=== PATIENT | male | born 1955 | race Caucasian/White ===

== ENCOUNTER 2017-08-27 19:33 | Inpatient (IN) | payer MEDICARE ==
[2017-08-27] MEDS ORDERED: CLINDAMYCIN IV 900MG 900 MG in PREMIX BAG 1 BAG IVPB ONE (20:05)
[2017-08-27] MEDS ORDERED: SODIUM CHLORIDE 0.9% 1000ML 1,000 ML IVS ONE (20:05)
[2017-08-27] MEDS ORDERED: CLINDAMYCIN IV 900MG 50 ML IVPB ONE (20:21)
--- NOTE | 2017-08-27 20:38 | ED.PDOC ---
History of Present Illness - General Chief Complaint: General Stated Complaint: incision site with redness Time Seen by Provider: 08/27/17 20:02 Source: patient Exam Limitations: no limitations - History of Present Illness Initial Comments: HAS WOUND TO LEFT GROIN, INCREASED REDNESS TODAY Timing/Duration: getting worse Improving Factors: nothing Worsening Factors: nothing Associated Symptoms: other - HAS HAD SWELLING OF THE LEFT LOWER EXT SINCE LYMPH NODE REMOVAL Allergies/Adverse Reactions: Allergies NO KNOWN ALLERGY Allergy (Verified 08/27/17 20:01) Home Medications: Ambulatory Orders Acetaminophen/Codeine #3 300-30 mg 08/27/17 Cephalexin 500 mg PO Q6HR 08/27/17 Clindamycin HCl 300 mg PO Q6HR 08/27/17 Oxycodone HCl [Oxycontin] 08/27/17 Review of Systems - Review of Systems Constitutional: States: fever, weakness. Denies: chills EENTM: States: no symptoms reported Respiratory: Denies: cough, short of breath, wheezing Cardiology: States: edema. Denies: chest pain, palpitations, syncope Gastrointestinal/Abdominal: Denies: abdominal pain, constipation, diarrhea, nausea, vomiting Genitourinary: Denies: dysuria, frequency Musculoskeletal: States: other - SWELLING OF THE LEFT LOWER EXT. Denies: back pain, joint pain, joint swelling Skin: States: other - POST LYMPH NODE DISSECTION WITH LARGE OPEN WOUND. HAS BEEN PACKING THE WOUND. REDNESS TO LOWER WOUND EDGES. Neurological: States: paresthesia, weakness Endocrine: Denies: increased hunger, increased thirst, increased urine Hematologic/Lymphatic: States: no symptoms reported All other Systems: Reviewed and Negative Past Medical History (General) - Patient Medical History Hx Seizures: No Hx Stroke: No Hx Dementia: No Hx Asthma: No Hx of COPD: No Hx Cardiac Disorders: No Hx Congestive Heart Failure: No Hx Hypertension: No Hx Diabetes: No Hx Cancer: Yes - melanoma jun 2017 Surgical History: other - Vaccination History Hx Tetanus, Diphtheria Vaccination: No Hx Influenza Vaccination: Yes Immunizations Up to Date: Yes - Social History Hx Tobacco Use: No Hx Alcohol Use: Yes Family Medical History - Family History Mother Family History: No Known Physical Exam - Physical Exam General Appearance: Alert, Well Developed, Well Groomed, Well Hydrated Ears, Nose, Throat: hearing grossly normal, normal ENT inspection Neck: non-tender, full range of motion, supple Respiratory: chest non-tender, lungs clear, normal breath sounds, no respiratory distress, no accessory muscle use Cardiovascular/Chest: normal peripheral pulses, regular rate, rhythm, no edema, no gallop Peripheral Pulses: radial,right: 2+, radial,left: 2+, dorsalis pedis,right: 2+, dorsalis pedis,left: 1+ Gastrointestinal/Abdominal: normal bowel sounds, non tender, soft, no organomegaly, no pulsatile mass Extremity: normal range of motion 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 Progress - Progress Progress: 08/27/17 20:44 A CHART REVIEW HAS BEEN PERFORMED. PT HAD A LYMPH NODE DISSECTION DONE X2 WITH RESECTION AFTER MELANOMA RESECTION. HAS OPEN WOUND TO THE LEFT GROIN. HAS BEEN DOING WOUND PACKING WITH HOME HEALTH. AWAITING WOUND VAC. HOME HEALTH NOTED INCREASED ERYTHEMA TODAY. IS ALREADY ON CLINDA/KEFLEX. WILL EVAL FOR BACTEREMIA. APPEARS TO HAVE FAILED OUTPATIENT ANTIBIOTICS. Departure - Departure Clinical Impression: Failure of outpatient treatment Wound cellulitis after surgery Qualifiers: Encounter type: initial encounter Qualified Code(s): T81.4XXA - Infection following a procedure, initial encounter Time of Disposition: 20:57 Disposition: Admit Patient Condition: Fair Departure Forms: ED Discharge - Pt. Copy, Patient Portal Self Enrollment Diet: resume usual diet Activity: ambulate only with walker Home Medications: Ambulatory Orders Acetaminophen/Codeine #3 300-30 mg 08/27/17 Cephalexin 500 mg PO Q6HR 08/27/17 Clindamycin HCl 300 mg PO Q6HR 08/27/17 Oxycodone HCl [Oxycontin] 08/27/17 Decision To Admit - Decistion To Admit Decision to Admit Reason: Admit from ER - FAILED OUTPATIENT ANTIBIOTICS Decision to Admit Date: 08/27/17 Decision to Admit Time: 20:56
[2017-08-27] MEDS ORDERED: SODIUM CHLORIDE 0.9% 500ML 500 ML ONE ×2 (20:40→20:41)
[2017-08-27] MEDS ORDERED: VANCOMYCIN HCL INJ 1,000 MG VIAL IVPB ONE (20:40)
[2017-08-27] MEDS: VANCOMYCIN HCL INJ 1,700 MG in SODIUM CHLORIDE 0.9% 500ML 500 ML IVPB SCH (20:43)
--- NOTE | 2017-08-27 22:27 | HP ---
SUPERVISING PHYSICIAN: Edgar Hensley MD CHIEF COMPLAINT: Left groin wound redness with pain and physical weakness. HISTORY OF PRESENT ILLNESS: This is a 62-year-old male patient who lives at [facility]. Approximately 8 years ago, he had a melanoma to the left posterior calf that was excised. He had had no problems with it until June and he had another melanoma excised from the same spot on his posterior left calf. The surgery was in [place]. At the same time, he had lymph node resection of the left groin. He then had a second surgery on 08/05/17 where he had some extra lymph nodes excised. He sees a surgeon in [place]. Approximately 1-1/2 weeks after his second surgery, he was visiting his daughter in [place] and he went to the Emergency Room due to the wound in his groin opening up. At that time, they packed it and sent him back to see his surgeon. He was put on clindamycin as well as Keflex. He saw his surgeon shortly thereafter. He continued the Keflex and clindamycin. He ordered wound care by [facility]. They had been packing it daily and he was to have a wound VAC placed on it at some point in time. The wound VAC has not come in, so that has not happened. Since Friday, the area of the groin has had more soreness as well as redness that has gone down the inside of his left thigh. On Friday, he ran a low-grade fever with extreme weakness and fatigue. Friday he felt somewhat better, but on Friday and Friday, he progressively worsened to the point that the leg was too painful as well as the redness was increasing, so he came to the Emergency Room. In the Emergency Room, his white count was 6.7 with hemoglobin 11.6, hematocrit 33.9, platelet count 240, 36% neutrophils. Sodium 140, potassium 3.9, chloride 107, CO2 25, BUN 22, creatinine 1.02, blood sugar 106. Liver enzymes were within normal limits. His lactic acid was 1.4. Blood cultures were drawn as well as a wound culture taken. He was given vancomycin in the Emergency Room as well as IV clindamycin. I was called for hospital admission. PAST MEDICAL HISTORY: 1. Chronic low back pain secondary to a compression fracture. He sees pain management in [place]. PAST SURGICAL HISTORY: 1. Appendectomy. 2. Melanoma excision 8 years ago. 3. Melanoma excision with lymph node resection in June of 2017. 4. Second surgery for lymph node excision on 08/05/17. OUTPATIENT MEDICATIONS: Per the EMR and awaiting verification. ALLERGIES: NO KNOWN DRUG ALLERGIES. SOCIAL HISTORY: He lives at [facility]. His primary care physician is in [place]. He denies any smoking, ETOH or illicit drug use. REVIEW OF SYSTEMS: GENERAL: Positive for fever and fatigue. Negative for weight changes. HEENT: Negative for sinus symptoms, ear pain, vision changes or sore throat. RESPIRATORY: Negative for wheezing, coughing or shortness of breath. CARDIAC: Negative for chest pain, palpitations or tachycardia. GASTROINTESTINAL: Negative for nausea, vomiting, diarrhea, constipation or abdominal pain. GENITOURINARY: Negative for hematuria, dysuria or polyuria. SKIN: As per history of present illness. NEUROLOGIC: Positive for weakness. Negative for dizziness or seizures. PHYSICAL EXAMINATION: VITAL SIGNS: Temperature 97.9. Heart rate 84. Blood pressure 139/89. Respiratory rate 22. O2 saturation 97% on room air. GENERAL: This is a 62-year-old male patient who is lying in his hospital bed. He is in no acute distress. HEENT: Normocephalic, atraumatic. Pupils are equal and reactive. Oropharynx is clear. NECK: Supple without mass. RESPIRATORY: Essentially clear to auscultation bilaterally. CHEST: There is equal rise and fall of the chest with inspiration and expiration. CARDIOVASCULAR: Regular rate and rhythm. GASTROINTESTINAL: Abdomen is soft, rounded, nondistended. Bowel sounds are positive. EXTREMITIES: Right lower extremity with no cyanosis, clubbing or edema. Left lower extremity is +1 to +2 edema along the entire leg. This swelling has been present since around the time of his surgery in June. INTEGUMENT: He has a large open wound to the left groin with packing in it. The redness is surrounding the wound edges and it is warm, it is erythematous and the erythema extends down to mid medial thigh and approximately 3 cm around the wound edges. NEUROLOGIC: Awake, alert and oriented times three. LABORATORY: Labs and films are as per history of present illness. ASSESSMENT: 1. Cellulitis of the left groin, failed outpatient therapy. 2. Melanoma excision of the left posterior calf plus lymph node excision at the same time of the initial surgery. 3. Multiple lymph node resections on 08/05/17. 4. Chronic lower back pain on OxyContin and managed by a pain management group in [place]. PLAN: We will admit the patient to the hospital. We will start him on vancomycin per pharmacy protocol. I will consult Dr. Fields in the morning. I will start him on a proton pump inhibitor for ulcer prophylaxis as well as Lovenox for DVT prophylaxis. His home medications will be restarted. I will order labs for in the morning. I have also ordered a CRP and ESR. We will continue to monitor the patient closely and follow as needed. Dr. Hensley is the collaborating physician and available for consultation. #[id number] [facility]
[2017-08-27] MEDS ORDERED: SODIUM CHLORIDE 0.9% (FLUSH) 10 ML SYG IV PRN (23:20)
[2017-08-27] MEDS ORDERED: SODIUM CHLORIDE 0.45% 1000ML 1,000 ML IV ONE (23:23)
[2017-08-27] MEDS ORDERED: ENOXAPARIN SODIUM 40 MG/0.4 ML SYG SUBCU SCH (23:30)
[2017-08-27] MEDS ORDERED: PANTOPRAZOLE SODIUM IV 40 MG VIAL IV SCH (23:30)
[2017-08-27] MEDS: HYDROcodone 10MG/APAP 325MG 1 EA TAB PO PRN (23:51)
[2017-08-27] MEDS: IV SET AND CAP CHANGE INJ INJ SCH (23:51)
[2017-08-27] MEDS: TEMAZEPAM 15 MG CAP PO PRN (23:52)
[2017-08-28] MEDS: HYDROcodone 10MG/APAP 325MG 1 EA TAB PO PRN ×3 (05:56→18:25)
[2017-08-28] MEDS ORDERED: SODIUM CHLORIDE 0.9% 500ML 500 ML ONE (07:34)
[2017-08-28] MEDS ORDERED: VANCOMYCIN HCL INJ 1,000 MG VIAL IVPB ONE ×2 (07:35→19:52)
[2017-08-28] MEDS ORDERED: VANCOMYCIN PER PHARMACY INJ SCH (08:00)
[2017-08-28] MEDS: VANCOMYCIN HCL INJ 1,700 MG in SODIUM CHLORIDE 0.9% 500ML 500 ML IVPB SCH (08:17)
[2017-08-28] MEDS: SODIUM CHLORIDE 0.9% (FLUSH) 10 ML SYG IV SCH ×2 (10:52→20:44)
[2017-08-28] MEDS ORDERED: levoFLOXacin 500MG IV 500 MG in PREMIX BAG 1 BAG IVPB SCH (11:00)
[2017-08-28] MEDS ORDERED: levoFLOXacin 500MG IV 100 ML IVPB ONE (11:08)
--- NOTE | 2017-08-28 13:32 | CONS ---
DATE OF CONSULTATION: 08/28/17 HISTORY OF PRESENT ILLNESS: The patient is a 62-year-old male who has undergone surgical treatment for a melanoma of his left calf after what appeared to be a sentinel node biopsy in the left groin which was positive. He underwent a femoral node dissection which apparently also had positive nodes. The groin incision eventually dehisced and he has been on oral antibiotics and wound packings awaiting a wound VAC, but presented yesterday because of pain in the leg and more soreness and a low grade temperature along with a feeling of weakness and fatigue. PAST MEDICAL HISTORY: 1. Chronic low back pain from a compression fracture. PAST SURGICAL HISTORY: 1. Appendectomy. 2. Melanoma originally excised in [place] 8 years ago. It was re-excised with the sentinel node biopsy in June in [place] by Dr. Perdomo, and then he underwent the femoral node dissection on 08/01/17. CURRENT MEDICATIONS: He takes no medications other than the antibiotics and pain medication. ALLERGIES: NO KNOWN DRUG ALLERGIES. 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 He denies smoking. He uses alcohol rarely. FAMILY HISTORY: Noncontributory. REVIEW OF SYSTEMS: There has been no chest pain or shortness of breath. Other than the swelling in his left leg and discomfort associated with that, he denies health issues. PHYSICAL EXAMINATION: VITAL SIGNS: The patient is currently afebrile, normotensive. HEENT: Sclerae nonicteric. Mucous membranes moist. NECK: Without adenopathy. BACK: Without CVA tenderness. CHEST: Equal breath sound. HEART: Regular rate and rhythm. ABDOMEN: Soft and benign. EXTREMITIES: The left lower extremity is edematous in comparison with the right leg. In the left groin, there is a wound with good granulation tissue and no obvious necrotic tissue although the superior flap is hard to examine without a light. There is mild surrounding erythema. There was no smell to the drainage from the wound. The wide re-excision site in the left groin is clean and healing well. There are still metallic sutures left intact. There is also what appears to be a biopsy site behind the left knee which is clean and healing well. LABORATORY: White count 4.6, hemoglobin 10.6, platelet count 195,000, segmented neutrophils 33%. ESR 103. Chemistries had normal liver functions on admission. C-reactive protein is 3.2, potassium 3.9, creatinine 0.85, glucose 105. ASSESSMENT: 1. Melanoma status post positive femoral node dissection with wound dehiscence and minimal surrounding cellulitis. RECOMMENDATION: Continue local wound care and proceed with the wound VAC. Would await culture results before making any changes on antibiotics. Also, we explained to the patient he would need oncology consultation when his wound has resolved. #[id number] [facility]
[2017-08-28] MEDS: PANTOPRAZOLE SODIUM TAB 40 MG PO SCH (16:41)
--- NOTE | 2017-08-28 18:01 | PN ---
DATE: 08/28/17 SUPERVISING PHYSICIAN: Edgar Hensley M.D. SUBJECTIVE: The patient is resting in bed. He has had no fevers. He has had some pain but more so in his back than in the wound. The wound dressing remains in place showing some serous type drainage. The patient notes that the area is not quite as sore as it was yesterday and the area that was marked with the erythema seems to be receding. OBJECTIVE: VITAL SIGNS: Temperature 97.8, pulse 74, blood pressure 123/81, respirations 20, satting 95% on room air. I's and O's show a positive balance of 690 with 2140 in, 1450 out. Weight is 134.9 kg. CHEST: Lungs were clear to auscultation bilaterally. HEART: Regular rate and rhythm. ABDOMEN: Obese but soft, non-tender. There are 2 puncture wounds that are healing to the left lower quadrant from previous drains with no obvious signs of infection. EXTREMITIES: In the left groin the wound shows to be draining but serous lymph type fluid. It is mildly erythematous around the wound edges. There is an area of erythema that does extend past the borders but is receding compared to previous markings on admission. No obvious areas of consolidation or tunneling. Overall the wound shows good granulation with no necrotic tissue readily visible. Left calf shows an incision that is clean and dry with suture in place. Shows to be healing well. Overall his left leg is edematous compared to the right. Pulses distally were strong. Capillary refill was brisk. NEUROLOGIC: He is alert and oriented times three. LABORATORY: White count 4,600 with hemoglobin 10.6, hematocrit 31.1, platelet count 195,000. Differential shows to be without a left shift. Chemistries show normal electrolytes. BUN 19, creatinine 0.85. MICROBIOLOGY: Blood cultures remain negative. Wound culture is pending. ASSESSMENT: 1. Melanoma status post femoral node dissection with wound dehiscence and minimal surrounding cellulitis to the left groin. 2. Chronic lower back pain on OxyContin under a pain management group in [place]. 3. History of multiple lymph node resections in 08/05/17. PLAN: Dr. Fields has seen the patient in consultation. Wound management will be per Dr. Fields's management awaiting a Wound VAC placement with [facility] which is scheduled to be in place tomorrow. Will await culture results to further target any antibiotic therapy. Also, continue to encourage the patient to keep his leg elevated to decrease lymphedema. Anticipate discharge at Dr. Fields's discretion. Until then, will continue to monitor and treat appropriately. Once the patient is discharged, he will need to be reinforced that he needs to followup with Oncology in consultation after the wound is completely healed as well as followup with his primary care provider, Dr. Ramirez in [place]. #[id number] [facility]
[2017-08-28] MEDS ORDERED: SODIUM CHLORIDE 0.9% 250ML 250 ML ONE (19:51)
[2017-08-28] MEDS: SODIUM CHLORIDE 0.9% IVPB SCH (20:42)
[2017-08-28] MEDS: VANCOMYCIN HCL IVPB SCH (20:42)
[2017-08-28] MEDS: ENOXAPARIN SODIUM 40 MG/0.4 ML SYG SUBCU SCH (20:44)
--- NOTE | 2017-08-28 20:58 | PCM.CORE ---
Physician DVT/VTE - Nurse DVT Assessment & Total Each Risk Factor Represents 2 Points: Age 60-74, Malignancy (present/past) Each Risk Factor is 1 Point: Varicose Veins/Edema Legs, Obesity (BMI >25) DVT Assessment Score: 6 - 5 or more Very High Risk Treatments: Early Ambulation *, Sequential Compression Device Pharmacological: Enoxaparin 40mg SQ Daily
[2017-08-29] MEDS: HYDROcodone 10MG/APAP 325MG 1 EA TAB PO PRN ×4 (00:05→23:36)
[2017-08-29] MEDS: TEMAZEPAM 15 MG CAP PO PRN ×2 (00:06→23:36)
[2017-08-29] MEDS: PANTOPRAZOLE SODIUM TAB 40 MG PO SCH (06:03)
[2017-08-29] MEDS ORDERED: levoFLOXacin 750MG IV 750 MG in PREMIX BAG 1 BAG IVPB SCH (09:30)
[2017-08-29] MEDS ORDERED: VANCOMYCIN HCL INJ 1,000 MG VIAL IVPB ONE ×2 (09:34→19:19)
[2017-08-29] MEDS ORDERED: SODIUM CHLORIDE 0.9% 250ML 250 ML ONE ×2 (09:34→19:18)
[2017-08-29] MEDS: SODIUM CHLORIDE 0.9% (FLUSH) 10 ML SYG IV SCH ×2 (09:45→20:56)
[2017-08-29] MEDS: VANCOMYCIN HCL IVPB SCH ×2 (09:45→20:56)
[2017-08-29] MEDS: SODIUM CHLORIDE 0.9% IVPB SCH ×2 (09:45→20:56)
[2017-08-29] MEDS: levoFLOXacin 750MG IV 750 MG in PREMIX BAG 1 BAG IVPB SCH (12:40)
[2017-08-29] MEDS: ENOXAPARIN SODIUM 40 MG/0.4 ML SYG SUBCU SCH (20:57)
[2017-08-30] MEDS ORDERED: VANCOMYCIN HCL INJ 1,000 MG VIAL IVPB ONE ×2 (05:34→20:28)
[2017-08-30] MEDS ORDERED: SODIUM CHLORIDE 0.9% 250ML 250 ML ONE ×2 (05:34→20:27)
[2017-08-30] MEDS: PANTOPRAZOLE SODIUM TAB 40 MG PO SCH (06:23)
[2017-08-30] MEDS: SODIUM CHLORIDE 0.9% IVPB SCH ×2 (09:43→21:00)
[2017-08-30] MEDS: VANCOMYCIN HCL IVPB SCH ×2 (09:43→21:00)
[2017-08-30] MEDS: SODIUM CHLORIDE 0.9% (FLUSH) 10 ML SYG IV SCH ×2 (09:45→20:59)
--- NOTE | 2017-08-30 11:05 | PN ---
DATE: 08/29/17 SUPERVISING PHYSICIAN: Edgar Hensley M.D. SUBJECTIVE: The patient is resting in bed. His leg overnight had decreased in edema with it being elevated. He has been afebrile. He has had no chest pain, shortness of breath, nausea, vomiting, diarrhea. He continues with wound management with [id number] dressings and tolerated this well. We are still awaiting final determination of when his wound vac will be available for discharge.. OBJECTIVE: VITAL SIGNS: Temperature 97.5, pulse 68, blood pressure 159/98, respirations 17 , saturation 97% on room air. I's and O's show a balance of 0 with 2850 in, 2850 out. Weight is 138.4 kg. CHEST: Lungs were clear to auscultation bilaterally. HEART: Tones distant. ABDOMEN: Obese but soft, non-tender. Positive bowel sounds. EXTREMITIES: Left groin the wound continues to show a serous lymphatic type drainage with dressing in place and decrease in erythema overall. Measurements on his legs have indicated that he has actually decreased in the extremity edema to the left leg, pulses remained strong distally with capillary refill brisk. NEUROLOGIC: He is alert and oriented times three. LABORATORY: Chemistries today show normal electrolytes with potassium 4.0. Creatinine 0.91, repeat C-reactive protein down to 2.1. Vancomycin trough today 11.6. MICROBIOLOGY: Preliminary wound culture shows a gram negative uri with preliminary indicating possible Pseudomonas needing further workup. Blood cultures remain negative at 48 hours. RADIOLOGY: No additional radiographic studies. ASSESSMENT: 1. Melanoma status post femoral node dissection with wound dehiscence and minimal surrounding cellulitis to the left groin with preliminary wound cultures indicating a gram negative uri, possibly Pseudomonas requiring initiation of additional antibiotics to include Levaquin for Pseudomonas coverage with continuation of vancomycin for gram positive awaiting final culture results. 2. Chronic lower back pain on OxyContin under a pain management group in [place]. 3. History of multiple lymph node resections in 08/05/17 as noted above for melanoma. PLAN: Will continue with wound management if available given that he has a gram negative uri will switch to 0.25% acetic acid for [id number] dressing at least twice a day. If acetic acid is unavailable will continue with normal saline or sterile water as previous. Will await further culture results in the morning before starting antibiotic therapy. Will continue to follow with home health, [facility] in efforts to secure discharge planning and placement of wound Vac prior to discharge or after discharge. Will continue to defer further management of the wound care to Dr. Fields and ultimately discharge decision. Once the patient is discharged, again he will need close followup with oncology and consultation and further wound management and is followed by his primary care physician. Until then, we will continue to monitor and treat appropriately. #[id number] [facility]
[2017-08-30] MEDS: levoFLOXacin 750MG IV 750 MG in PREMIX BAG 1 BAG IVPB SCH (12:06)
[2017-08-30] MEDS: HYDROcodone 10MG/APAP 325MG 1 EA TAB PO PRN ×2 (13:32→18:45)
--- NOTE | 2017-08-30 19:29 | PN ---
DATE: 08/30/17 SUPERVISING PHYSICIAN: Edgar Hensley M.D. SUBJECTIVE: The patient has been afebrile. He has had no nausea or vomiting or diarrhea. He is keeping his leg elevated and is showing good response with his leg showing decrease in the amount of edema. Wound continues to show good response to treatment. OBJECTIVE: VITAL SIGNS: Temperature 97.5, pulse 60, blood pressure 130/81, respirations 18, satting 98% on room air. I's and O's show a negative balance of 1010 with 1790 in, 2800 out. Weight is 136.7 kg. CHEST: Lungs were clear to auscultation bilaterally. HEART: Regular rate and rhythm. ABDOMEN: Obese but soft, non-tender. Positive bowel sounds. EXTREMITIES: Left leg is slightly larger compared to the right, but from admission has shown to have decreased in measurement. There is no edema noted to the right leg. The wound in the groin continues to show serous lymphatic drainage with good granulation. No obvious necrotic tissue and no drainage indicating a significant infection. Wound to the left calf continues to show just some mild erythema with sutures in place, healing well with no signs of infection. NEUROLOGIC: He is alert and oriented times three. LABORATORY: No additional laboratory was completed today. ASSESSMENT: 1. Melanoma status post femoral node dissection with wound dehiscence with minimal surrounding cellulitis to the left groin with preliminary wound cultures indicating a gram negative uri with cultures pending with concern for possible Pseudomonas with continuation of antibiotics to include Levaquin for Pseudomonas coverage as well as vancomycin for gram positive awaiting final culture results. 2. Chronic lower back pain on OxyContin under a pain management group in [place]. 3. History of multiple lymph node resections in 08/05/17 as noted above for melanoma to the back of the left calf. PLAN: Will continue to do [id number] dressings and await final culture results. Anticipate discharging tomorrow. Arrangements are ready for the wound care and Wound VAC with [facility] once discharged the following day. Will await further culture results and target antibiotics as appropriate. Until then, continue to monitor and treat appropriately. #[id number] [facility]
[2017-08-30] MEDS: ENOXAPARIN SODIUM 40 MG/0.4 ML SYG SUBCU SCH (20:59)
[2017-08-31] MEDS: IV SET AND CAP CHANGE INJ INJ SCH
[2017-08-31] MEDS: HYDROcodone 10MG/APAP 325MG 1 EA TAB PO PRN ×2 (00:28→09:34)
[2017-08-31] MEDS: TEMAZEPAM 15 MG CAP PO PRN (00:28)
[2017-08-31] MEDS: PANTOPRAZOLE SODIUM TAB 40 MG PO SCH (06:42)
[2017-08-31] MEDS ORDERED: SODIUM CHLORIDE 0.9% 250ML 250 ML ONE (08:55)
[2017-08-31] MEDS ORDERED: VANCOMYCIN HCL INJ 1,000 MG VIAL IVPB ONE (08:56)
[2017-08-31] MEDS: SODIUM CHLORIDE 0.9% IVPB SCH (09:10)
[2017-08-31] MEDS: VANCOMYCIN HCL IVPB SCH (09:10)
[2017-08-31] MEDS: SODIUM CHLORIDE 0.9% (FLUSH) 10 ML SYG IV SCH (09:10)
[2017-08-31 10:47] VITALS: BP 129/74; TEMP 98.6; O2SAT 96
[2017-08-31] MEDS: levoFLOXacin 750MG IV 750 MG in PREMIX BAG 1 BAG IVPB SCH (13:14)
--- NOTE | 2017-09-07 21:42 | DS ---
SUPERVISING PHYSICIAN: Edgar Hensley M.D. DISCHARGE DIAGNOSIS: 1. Melanoma status post femoral node dissection with wound dehiscence with minimal surrounding cellulitis to the left groin with wound cultures showing Pseudomonas aeruginosa that was sensitive to Levaquin with the patient having been treated with parenteral antibiotics to include Levaquin as well as vancomycin showing good improvement in wound healing. 2. Chronic lower back pain on OxyContin under a pain management group in [place]. 3. History of multiple lymph node dissections in 08/05/17 as noted above for melanoma to the back of the left calf. REASON FOR HOSPITALIZATION: Mr. Spencer is a 62-year-old male patient that lives at [facility]. Approximately 8 years previously, he had a melanoma to the left posterior calf that was excised. He had no problems up until June and he had another recurrence of melanoma which was then excised from the same spot on his posterior left calf. The surgery occurred in [place]. At the same time, he had lymph node resection to the left groin. He then had a second surgery on 08/05/17 where he had some extra lymph nodes excised. He is followed by a surgeon in [place]. Approximately 1-1/2 weeks after his second surgery, he was visiting his daughter in [place] and he went to the Emergency Room due to the wound in his groin opening up. At that time, the wound was packed and he was sent back home to see his surgeon. He was put on clindamycin as well as Keflex. He did see his surgeon shortly thereafter and was continued on Keflex and clindamycin. He was ordered to have wound care by [facility] for placement of a packing and wound VAC at some point. The wound VAC had not come in prior to Friday and the area in the groin had become more sore as well as red that had been going down the inside of his left thigh. On Friday, he ran a low-grade fever with extreme weakness and fatigue. Friday, he felt somewhat better, but on Friday and Friday, he progressively worsened to the point that the leg was too painful as well as the redness was increasing , so at that time he presented to the Emergency Room. In the Emergency Room, he was found to have a normal white count at 6,700. Blood cultures were drawn as well as a wound culture taken. Wound management was done in the E. R. and he was started on vancomycin per Pharmacy protocol as well as given a dose of clindamycin. He was admitted to the hospital in stable condition for further management of the wound. LABORATORY STUDIES: Initial white count was 6,700, at discharge was 4,600. Hemoglobin and hematocrit were stable and at discharge was 10.6 and 31.1. Platelet count was 195,000. Differential was without a left shift. He had a sed rate that was elevated at 103. Chemistries both on admission and at discharge showed normal electrolytes with BUN 14, creatinine 0.91 at discharge. Calcium 8.1. Initial lactic acid was 1.4. C reactive protein that was slightly elevated initially at 3.2, but by discharge after treatment was down to 2.1. Urinalysis showed to be within normal limits. Toxicology screen: He had 1 vancomycin trough that was 11.6. MICROBIOLOGY: Wound culture final results showed Pseudomonas aeruginosa that was sensitive to Levaquin and Cipro, but resistant to Penicillins, Tetracycline , Macrobid and sulfa drugs. Please see that final sensitivity report for full details. Blood cultures were drawn and they remained negative at 5 days. RADIOLOGY: No radiographic studies were submitted. CONSULTATION: General surgery by Dr. Fields for help with wound management. See his note for full details. HOSPITAL COURSE: Mr. Spencer was admitted from the . as noted above in his History of Present Illness on 08/27/17. Wound culture was taken. Wound management was provided. Consultation with Dr. Feilds who provided help with managing his wound care. He was started on Levaquin after initial wound culture showed gram-negative rods with final culture results completed. He was continued on Levaquin and vancomycin was stopped. The patient showed good improvement in his wound with no signs of infection and was felt clinically well enough on date of discharge to continue with outpatient treatment measures with home health. PLAN: Mr. Spencer was discharged on 08/31/17 with instructions to followup with his primary care provider, Dr. Ramirez, in 1 to 2 weeks. He was also told to followup with his surgeon in [place]. He was provided instructions on wound management. He is not to have any baths but could shower. He was continued on antibiotics to include Levaquin and had arrangements with [facility] to followup after discharge for further wound management and wound VAC placement. He was told to return to the hospital should any concerning symptoms or worsening of his wound. New medications at discharge included: 1. Align 4 mg daily for 30 days. 2. Levaquin 50 mg daily for 10 days. No other medications were added to his medication regimen. Diet at discharge was regular diet as tolerated. Activity is increase as tolerated. Condition on discharge was stable and improved. #[id number] [facility]
== END 2017-08-31 11:30 | disposition home health service (06) | DRG 863 ==
LOC: ER 19:33 → OBSVTOIN 22:26 → MS 22:26
PROVIDERS: ADMIT Nurse Practitioner Acute Care; ATTEND Nurse Practitioner Family
DX: T81.4XXA Infection following a procedure, initial encounter (principal); L03.314 Cellulitis of groin; T81.31XA Disruption of external operation (surgical) wound, not elsewhere classified, initial encounter; C77.4 Secondary and unspecified malignant neoplasm of inguinal and lower limb lymph nodes; G89.29 Other chronic pain; M54.5 Low back pain; E66.9 Obesity, unspecified; Y83.8 Other surgical procedures as the cause of abnormal reaction of the patient, or of later complication, without mention of misadventure at the time of the procedure; Z98.890 Other specified postprocedural states; Z85.820 Personal history of malignant melanoma of skin; Y92.9 Unspecified place or not applicable; Z79.899 Other long term (current) drug therapy; Z79.891 Long term (current) use of opiate analgesic; Z68.37 Body mass index [BMI] 37.0-37.9, adult

== ENCOUNTER 2019-02-19 16:58 | Observation (INO) | payer MEDICARE ==
[2019-02-19] MEDS ORDERED: SODIUM CHLORIDE 0.9% (FLUSH) 10 ML SYG IV PRN ×2 (17:33→20:59)
[2019-02-19] MEDS ORDERED: SODIUM CHLORIDE 0.9% 1000ML 1,000 ML IVS ONE ×2 (17:33→18:46)
[2019-02-19] MEDS ORDERED: ONDANSETRON INJ 4 MG/2 ML VIAL IV ONE (17:33)
--- NOTE | 2019-02-19 17:42 | ED.PDOC ---
History of Present Illness - General Chief Complaint: General Stated Complaint: weakness,does not feel well Time Seen by Provider: 02/19/19 17:33 Source: patient Exam Limitations: no limitations - History of Present Illness Initial Comments: PT PRESENTS TO THE ED WITH 1 WEEK HISTORY OF NAUSEA AND VOMITING. PT STATES HE HAS BEEN UNABLE TO KEEP DOWN FOOD OR FLUID FOR THE PAST WEEK. HE ALSO REPORTS HEADACHE AND INCREASED DYSPNEA WITH EXERTION. HE DENIES FEVER, CHILLS. PT HAS HISTORY OF METASTATIC MELANOMA OF THE LLE. PT REPORTS SPREAD OF CANCER TO LYMPH NODES AND THE ESOPHAGUS. PT STATES HE IS CURRENTLY RECEIVING ONLY LOCAL CHEMOTHERAPY INJECTED DIRECTLY TO THE SITE OF INITIAL LESION. Timing/Duration: 1 week, constant Severity: moderate Improving Factors: nothing Worsening Factors: nothing Associated Symptoms: headaches, malaise, nausea/vomiting, shortness of breath, weakness Allergies/Adverse Reactions: Allergies NO KNOWN ALLERGY Allergy (Verified 08/27/17 20:01) Home Medications: Ambulatory Orders HYDROcodone 10MG/APAP 325MG [[place] 10/325] 1 ea PO PRN 02/19/19 Review of Systems - Review of Systems Constitutional: States: malaise, weakness. Denies: chills, fever EENTM: Denies: nose pain, throat pain Respiratory: States: short of breath. Denies: cough Cardiology: Denies: chest pain, palpitations Gastrointestinal/Abdominal: States: nausea, vomiting. Denies: abdominal pain, diarrhea Genitourinary: Denies: dysuria, frequency Musculoskeletal: Denies: joint pain, joint swelling Skin: Denies: change in color, dryness Neurological: States: headache. Denies: numbness, paresthesia Endocrine: States: no symptoms reported Hematologic/Lymphatic: States: no symptoms reported Past Medical History (General) - Patient Medical History Hx Seizures: No Hx Stroke: No Hx Dementia: No Hx Asthma: No Hx of COPD: No Hx Cardiac Disorders: No Hx Congestive Heart Failure: No Hx Pacemaker: No Hx Hypertension: No Hx Diabetes: No Hx Cancer: Yes - Melonoma Hx MRSA: No Surgical History: appendectomy - Vaccination History Hx Tetanus, Diphtheria Vaccination: No Hx Influenza Vaccination: No Hx Pneumococcal Vaccination: Yes - Social History Hx Tobacco Use: No Hx Alcohol Use: No Hx Substance Use: No Hx Physical Abuse: No Hx Emotional Abuse: No Family Medical History - Family History Mother Family History: No Known Progress - Progress Progress: 02/19/19 18:46 PT REPORTS MINIMAL IMPROVEMENT AFTER 1L IV NS AND ZOFRAN. PT NOW STATES THAT HEADACHE IS WORSE. IV PHENERGAN, MORPHINE ORDERED WITH ADDITIONAL IV NS. - Results/Orders Results/Orders: Laboratory Tests 02/19/19 02/19/19 17:33 17:33 WBC 7.8 RBC 4.85 Hgb 14.7 Hct 41.1 L MCV 84.6 MCH 30.2 MCHC 35.7 RDW 13.3 Plt Count 202 MPV 7.5 Absolute Neuts (auto) 4.00 Absolute Lymphs (auto) 2.70 Absolute Monos (auto) 0.80 Absolute Eos (auto) 0.20 Absolute Basos (auto) 0.00 Neutrophils % 51.3 Lymphocytes % 35.3 Monocytes % 10.5 H Eosinophils % 2.4 Basophils % 0.5 Sodium 137 Potassium 3.3 L Chloride 103 Carbon Dioxide 21 Anion Gap 16.3 BUN 30 H Creatinine 2.12 H BUN/Creatinine Ratio 14.2 Random Glucose 139 H Serum Osmolality 282.3 Calcium 9.4 Total Bilirubin 1.2 H Direct Bilirubin 0.2 Indirect Bilirubin 1.0 H AST 31 ALT 27 Alkaline Phosphatase 71 Serum Total Protein 8.4 H Albumin 4.6 Amylase 50 Lipase 37 - EKG/XRAY/CT EKG: Sinus - @74BPM, WITH 1ST DEGREE AV BLOCK, NL AXIS, no ST T wave changes - NO OLD EKG FOR COMPARISON Departure - Departure Clinical Impression: Dehydration, Acute kidney injury, Headache, Nausea and vomiting, History of malignant melanoma, CINV (chemotherapy-induced nausea and vomiting) Time of Disposition: 18:49 Disposition: Admit Patient Condition: Fair Departure Forms: ED Discharge - Pt. Copy, Patient Portal Self Enrollment Referrals: KATLIN AMEZQUITA MD [Primary Care Provider] - 1-2 Weeks Home Medications: Ambulatory Orders HYDROcodone 10MG/APAP 325MG [[place] 10/325] 1 ea PO PRN 02/19/19 Decision To Admit - Decistion To Admit Decision to Admit Reason: Admit from ER Decision to Admit Date: 02/19/19 Decision to Admit Time: 18:50 - CASE DISCUSSED WITH DARNELL ANDREA NP WHO AGREES TO ADMIT
[2019-02-19] MEDS ORDERED: PROMETHAZINE HCL INJ 25 MG in SODIUM CHLORIDE 0.9% 50ML 50 ML IVPB ONE (18:44)
[2019-02-19] MEDS ORDERED: MORPHINE SULFATE INJ 10 MG/ML VIAL IV ONE (18:44)
[2019-02-19] MEDS ORDERED: PROMETHAZINE HCL INJ 25 MG/ML VIAL ONE (18:45)
[2019-02-19] MEDS ORDERED: SODIUM CHLORIDE 0.9% 50ML 50 ML ONE (18:46)
--- NOTE | 2019-02-19 19:25 | HP ---
SUPERVISING PHYSICIAN: William Mckay MD CHIEF COMPLAINT: Nausea and vomiting. HISTORY OF PRESENT ILLNESS: Mr. Spencer is a 63 year-old male patient with a history of melanoma, currently undergoing immunotherapy treatments. He presented to the Emergency Room today complaining of a history of nausea and vomiting. He notes he is unable to keep much of anything down including fluids. He denies any fever or chills. He notes his melanoma has become metastatic and has currently spread to the lymph nodes and esophagus, but again, is receiving local chemotherapy injected into the site of the lesions on his leg. Laboratory studies in the Emergency Room showed he had a normal white count of 7,800 with a hemoglobin of 14.7 and hematocrit 41.1, platelet count 202,000, differential showed to be without a left shift. Chemistries showed an elevated creatinine of 2.12 as well as a BUN at 30 with review of records showing baseline levels with creatinine to be around 0.85. Liver functions were all showing to be within normal limits other than initially did show a little elevation of bilirubin of 1.2 with normal amylase and lipase. Urinalysis showed a significant pyuria with too numerous to count WBCs and positive nitrites with 4+ bacteria. His vital signs showed that he was somewhat hypotensive with initial blood pressure of 86/43, heart rate 65, showing to be afebrile with temperature 97.5. He was given 2 liters of fluid with good response to treatment. Given his history and inability to hold any oral in, the patient is going to be admitted for IV therapy and initiation of parenteral antibiotics for treatment of the urinary tract infection. PAST MEDICAL HISTORY: 1. Chronic lower pain back secondary to compression fractures, followed by pain specialist in [facility], on hydrocodone. 2. Metastatic melanoma, original site left lower extremity, currently undergoing local chemotherapy injections. 3. Hypertension. PAST SURGICAL HISTORY: 1. Excision of the melanoma to the left lower extremity. 2. Appendectomy. 3. Melanoma excision with lymph node resection in June 2017. 4. Second surgery for lymph node excision in July 2017. CURRENT MEDICATIONS: 1. Zofran 8 mg every 8 hours as needed for nausea. 2. Lisinopril/Hydrochlorothiazide, one tablet daily. 3. [place] 10/325 one every 6 hours p.r.n. ALLERGIES: NO KNOWN DRUG ALLERGIES. REVIEW OF SYSTEMS: CONSTITUTIONAL: Positive for general malaise, negative for fevers, chills. HEENT: Denies earache, sore throat, nasal congestion, headaches, vision changes. CARDIAC: Denies chest pain, palpitations, syncopal episodes. GASTROINTESTINAL: Denies actual abdominal pains or diarrhea but positive for nausea and vomiting. GENITOURINARY: Denies dysuria, hematuria, polyuria. MUSCULOSKELETAL: Denies joint pain or joint swelling. SKIN: Denies color changes, lesions, rashes or moles. NEUROLOGICAL: Positive for headache, denies paresthesias or seizures. PHYSICAL EXAMINATION: VITAL SIGNS: Temperature 97.5, pulse 76, blood pressure 86/43, respirations are 18, oxygen saturation 96% on room air. GENERAL: The patient appears to be in no acute distress and resting comfortably. He is alert and oriented x3. HEENT: Tympanic membranes clear bilaterally. Oropharynx is pink with dry mucous membranes. NECK: Supple, non-tender, full range of motion. No jugular venous distention. CHEST: Lungs clear to auscultation bilaterally without rhonchi, rales, or wheezes. CARDIOVASCULAR: Regular rate and rhythm without appreciable murmurs, rubs, or gallops. ABDOMEN: Soft, non-tender, positive bowel sounds. EXTREMITIES: Without any edema. There are incisions noted on the left posterior calf region but no obvious lesions. NEUROLOGIC: He is alert and oriented x3. Facial features were symmetrical. Extraocular movements normal, no nystagmus. Cranial nerves II through XII are grossly intact. LABORATORY: CBC showed to be within normal limits with a hemoglobin of 14.7, hematocrit 41.1 with platelet count at 73,000. Differential shows to be without a left shift. White count 7,800. Chemistries showed normal electrolytes with a mild hypokalemia, potassium 3.3 with BUN 30, creatinine 3.12. Liver functions showed just a slight elevation of bilirubin at 1.2. All other liver functions were within normal limits as well as amylase and lipase. Urinalysis showed positive nitrites, small amount of leukoesterase. Microscopic revealed 5 to 10 RBCs, too numerous to count WBCs and 4+ bacteria with 0 epithelial cells. MICROBIOLOGY: Urine culture pending. RADIOLOGY: Abdominal/pelvis CT is pending. ASSESSMENT: 1. Nausea and vomiting, uncertain etiology, awaiting CT of the abdomen. 2. History of metastatic melanoma, currently undergoing localized tumor injections. 3. History of hypertension but hypotensive on admit secondary to dehydration. 4. Electrolyte imbalance with a mild hypokalemia likely secondary to vomiting and poor oral intact. 5. Acute kidney failure with elevated BUN at 2.12. 6. Urinary tract infection . Cultures pending. 7. Moderate dehydration, unable to tolerate oral intake. PLAN: The patient is going to be placed in observation tonight for IV fluids. Will anticipate length of stay to be one to two days. I have ordered a CT of the abdomen. Will await those results. Given his urinary tract infection, I will start him on Rocephin. Will await culture results to target antibiotic therapy. He will be on DVT prophylaxis per protocol. Until we can transition to outpatient management, we will continue to monitor and treat as needed. #[id number] [facility]
[2019-02-19] MEDS ORDERED: MAGNESIUM HYDROXIDE 30 ML UD PO PRN (20:59)
[2019-02-19] MEDS ORDERED: ALUM & MAG HYDROX-SIMETHICONE 30 ML UD PO PRN (20:59)
[2019-02-19] MEDS ORDERED: IV SET AND CAP CHANGE INJ INJ SCH (21:00)
[2019-02-19] MEDS ORDERED: SODIUM CHL 0.9% 50ML MIN-BAG+ 50 ML IVPB ONE (21:29)
[2019-02-19] MEDS ORDERED: cefTRIAXone SODIUM 1 GM VIAL ONE (21:30)
[2019-02-19] MEDS: KCL 20MEQ/D5 1/2NS 1,000 ML IVS PRN (21:32)
[2019-02-19] MEDS: cefTRIAXone SODIUM 1 GM in SODIUM CHL 0.9% 50ML MIN-BAG+ 50 ML IVPB SCH (21:32)
[2019-02-20] MEDS: KCL 20MEQ/D5 1/2NS 1,000 ML IVS PRN ×3 (04:14→21:12)
--- NOTE | 2019-02-20 12:21 | CT ---
EXAM DESCRIPTION: Abdoment/Pelvis w/o Contrast CLINICAL HISTORY: abdominal pain; HX of Melnoma under chemo tx COMPARISON: None Available TECHNIQUE: CT of the abdomen and Pelvis was performed without IV contrast. This exam was performed according to our departmental dose-optimization program, which includes automated exposure control, adjustment of the mA and/or kV according to patient size and/or use of iterative reconstruction technique. FINDINGS: 5 mm noncalcified nodule posteriorly in the right lung base which requires no further follow-up. The lung bases are otherwise unremarkable. Rounded 1.8 cm soft tissue density structure along the right lateral margin of the distal esophagus without internal gas or adjacent inflammation. Differential considerations include adenopathy or diverticulum. No pneumoperitoneum, ascites or adenopathy in the abdomen or pelvis. Mural calcification in the abdominal aorta without aneurysm. Diffuse fatty infiltration of the liver with focal sparing adjacent to gallbladder. No focal liver lesion. The gallbladder is dilated without calcified gallstone or pericholecystic inflammation. The spleen is enlarged, measuring just over 15 cm in length. No mass or other focal hepatic lesion. The pancreas, adrenals and kidneys are unremarkable. No dilated small bowel loops. No bladder wall thickening or bladder calcification. The prostate is not enlarged. No colonic wall thickening or pericolonic inflammation. The appendix is surgically absent. Postoperative changes in the left inguinal region with fat-containing bilateral inguinal hernias versus spermatic cord lipomata. Small fat-containing umbilical hernia without acute complication. Degenerative changes in the lumbar spine including bilateral L5-S1 pars defects. IMPRESSION: Dilated gallbladder without calcified gallstones or pericholecystic inflammation. If clinically suspicious of cholelithiasis, right upper quadrant ultrasound is recommended. Splenomegaly, nonspecific. Round1.8 cm soft tissue density lesion along the right lateral margin of the distal esophagus, nonspecific. Differential considerations include adenopathy or esophageal diverticulum. Neoplasm is considered less likely but, given provided history of melanoma, is not excluded. Electronically signed by: Cliff Camp MD 02/20/2019 12:20 PM CDT
[2019-02-20] MEDS: MORPHINE SULFATE INJ 10 MG/ML VIAL IV PRN ×3 (12:23→22:01)
[2019-02-20] MEDS ORDERED: HYDROcodone 10MG/APAP 325MG 1 EA TAB PO PRN (18:49)
[2019-02-20] MEDS ORDERED: SODIUM CHL 0.9% 50ML MIN-BAG+ 50 ML IVPB ONE (19:00)
[2019-02-20] MEDS ORDERED: cefTRIAXone SODIUM 1 GM VIAL ONE (19:00)
--- NOTE | 2019-02-20 20:33 | CONS ---
DATE OF CONSULTATION: 02/20/19 REASON FOR CONSULTATION: Nausea and vomiting rule out cholecystitis. HISTORY OF PRESENT ILLNESS: The patient's chief complaint at this time is of a month of intermittent nausea and vomiting, some weight loss, generalized tiredness, dyspnea on exertion and decreased appetite. He is currently getting immunotherapy for a malignant melanoma. He has been on injection treatment now since June. Prior to that he was on systemic treatment, according to the patient, and has a persistent and growing lesion in his chest, and recurrence at the primary site that is in his lower extremity. He does not have any hematemesis. He vomits grapes and other fruit that he has eaten with is primarily in the morning. He does not get a sense of odynophagia where it is painful or food gets stuck, but he claims he has not eaten regular meals and that the vomitus is clear, somewhat bilious and the food he had eaten. He denies any fevers or chills. He denies any pain associated with it other than the pain of retching. He denies any changes in his stools. Denies any lung disease or history of coronary disease. PAST MEDICAL HISTORY: 1. Chronic back pain for which he takes pain medicine, Hydrocodone. 2. Metastatic melanoma. He was operated on his lower extremity in June of 2017, I believe, and has been getting treatment for that. PAST SURGICAL HISTORY: As above as well as: 1. Left inguinal lymphadenectomy. 2. Appendectomy. CURRENT MEDICATIONS: 1. Zofran. 2. Lisinopril. 3. [place]. ALLERGIES: NO KNOWN ALLERGIES. FAMILY HISTORY: Noncontributory. SOCIAL HISTORY: REVIEW OF SYSTEMS: As above as well as complains of a headache not really localized. It was off and on now for a month. He was treated with steroids by his doctor. He said that helped with his headache and his feelings and his appetite, but the problem has returned. No visual changes. No sore throat, cough or wheeze. No chest pain or palpitations. GASTROINTESTINAL: As above. He complains of no pain and no right upper quadrant pain. No radiation to the back. No postprandial pain. No constipation or diarrhea. No history of black or bloody stools. GENITOURINARY: No frequency, dysuria or hematuria. EXTREMITIES: Just general malaise and feeling ill but no focal pain or problems. NEUROLOGIC: As above. No additional. PHYSICAL EXAMINATION: VITAL SIGNS: T max since admission has been 98.3, non-tachycardic. Pulse 110/80s, saturating 98% on room air. GENERAL: He is in bed conscious, alert and well oriented in no distress. HEENT: Normocephalic and atraumatic. Pupils are equal and reactive. NECK: Supple. No adenopathy, jugular venous distention or thyromegaly. CHEST: Clear, equal bilaterally. No wheeze or crackles. HEART: Regular rate and rhythm. ABDOMEN: Obese. There is a right lower quadrant healed scar. There is an incarcerated small fatty umbilical hernia. It is flat, soft, non-tender. No Clarke's sign. No noted hepatosplenomegaly. BACK: No CVA tenderness. EXTREMITIES: No clubbing, cyanosis or edema. He has a well healed surgical scar. NEUROLOGIC: Grossly intact. LABORATORY: White blood cell count on admission is 7, hematocrit 41, platelets 202. BMP today: Creatinine is 1.5 down from 2.2, BUN 22 from 30, otherwise normal. Liver function tests are completely normal. Urinalysis: Positive nitrites and leukocyte esterase. There was bacteria seen and no epithelial cells. STUDIES: CT of the abdomen and pelvis, which I reviewed, shows an approximately 10 x 5 cm gallbladder with no surrounding inflammation and no evidence of gallstones. There is a small kidney lesion. Impression: Small kidney lesion. There is bilateral fatty inguinal hernias. Incarcerated umbilical hernia. They do comment on the 1.8 cm density in the right lateral margin of the distal esophagus, otherwise no acute findings. IMPRESSION: 1. A 63 year-old man being treated with immunotherapy for a malignant melanoma with 3 to 4 weeks of intermittent nausea and vomiting, decreased appetite, and decreased activity. PLAN: This could be his gallbladder given the distention on the CAT scan, however he has no other symptoms other than nausea and vomiting. I would like an ultrasound and if that is normal, a HIDA scan with ejection fraction although he is on pain medicine. His nausea and vomiting could be multifactorial. If there are gallstones I would recommend taking out his gallbladder. At this time, however, he has no other symptoms of cholecystitis. If he is here until Friday will get those studies. If not, it can be done as an outpatient if he is feeling better and able to be discharged. Otherwise I see no other surgical pathology. Thank you for asking me to evaluate Mr. Spencer. I will follow him while he is in the hospital. #[id number] [facility]
[2019-02-20] MEDS ORDERED: ENOXAPARIN SODIUM 40 MG/0.4 ML SYG SUBCU SCH (21:00)
[2019-02-20] MEDS: cefTRIAXone SODIUM 1 GM in SODIUM CHL 0.9% 50ML MIN-BAG+ 50 ML IVPB SCH (21:03)
[2019-02-20] MEDS: ACETAMINOPHEN 325 MG TAB PO PRN (21:13)
[2019-02-20] MEDS ORDERED: ONDANSETRON INJ 4 MG/2 ML VIAL IV PRN (21:26)
[2019-02-20] MEDS ORDERED: PROMETHAZINE HCL INJ 25 MG in SODIUM CHLORIDE 0.9% 50ML 50 ML IVPB PRN (21:27)
[2019-02-21] MEDS: MORPHINE SULFATE INJ 10 MG/ML VIAL IV PRN (03:31)
[2019-02-21] MEDS: KCL 20MEQ/D5 1/2NS 1,000 ML IVS PRN (03:41)
[2019-02-21] MEDS: ACETAMINOPHEN 325 MG TAB PO PRN (07:43)
--- NOTE | 2019-02-21 08:23 | PN ---
DATE: 02/20/19 SUPERVISING PHYSICIAN: William Mckay MD SUBJECTIVE: The patient continues to have some nausea. His nausea seems to be associated with the pain medication regimen. I discussed with him that possibly codeine or his [place] could be causing some of his nausea. He has also had some nausea with his morphine. His pain at this point is in his back. He has had no abdominal pain and no fevers. OBJECTIVE: VITAL SIGNS: Temperature 98.3, blood pressure 110/82, respirations 16, oxygen saturation 98% on room air. I&O: weight 129.8 kg, he has had 2300 in. He is on a clear liquid diet. GENERAL: The patient generally appears unwell but appears to be in no acute distress. He is alert. CHEST: Lung sounds are clear to auscultation. HEART: Regular rate and rhythm. ABDOMEN: Obese but soft without any tenderness to palpation, masses or point tenderness. EXTREMITIES: Without any edema. NEUROLOGIC: He is alert and oriented x 3. LABORATORY: Chemistries this morning after fluids showed electrolytes had normalized with a BUN of 22, creatinine down to 1.59 from 2.12 on admission. Liver functions all within normal limits. Calcium is normal. Magnesium 2.1 last night. MICROBIOLOGY: Blood cultures are pending. RADIOLOGY: CT of the abdomen and pelvis without contrast per radiology interpretation showed dilated gallbladder without calcified gallstones or perisystolic inflammation. Recommend a right upper quadrant ultrasound to rule out cholelithiasis. Also of note was splenomegaly which is nonspecific and there was a round 1.8 cm soft tissue density lesion along the right lateral margin of the distal esophagus which is nonspecific. Medical consultation with surgical service, Dr. Cross. Please see his consultation note. ASSESSMENT: 1. Intermittent nausea and vomiting, uncertain etiology, with patient having history of malignant melanoma and enlarged gallbladder on current CT study but no actual abdominal pains and being followed by Dr. Cross, general surgeon. 2. History of metastatic melanoma, currently undergoing localized tumor injections. 3. History of hypertension, initially hypotensive on admission showing improvement with fluids, felt to be secondary to dehydration.. 4. Electrolyte imbalance on admission with hypokalemia secondary to vomiting and poor oral intake, improved with fluids. 5. Acute kidney failure due to prerenal azotemia showing good response to IV fluids. 6. Urinary tract infection . Cultures pending. Patient currently on parenteral antibiotics to include Rocephin. 7. Moderate dehydration, improving with IV fluids but still unable to tolerate significant oral intake.. PLAN: Will continue IV fluids today. Will await Dr. Cross's recommendations. He remains on Rocephin for antibiotic coverage for the urinary tract infection. I have him on DVT prophylaxis with Lovenox per protocol. He remains on clear liquids. We will provide him with antiemetics for any nausea he may have, including Zofran or Phenergan as needed. Will repeat a BMP in the morning and anticipate hopefully discharging either tomorrow or Friday, again, awaiting Dr. Cross's consultation findings. Until then, we will continue to monitor and treat as needed. #[id number] [facility] [place] [facility]
[2019-02-21] MEDS ORDERED: NON-FORMULARY MEDICATION 1 EA MIS (Lisinopril & Hydrochlorothiazi [Lisinopril/Hctz 20-12.5 PO SCH (09:00)
[2019-02-21] MEDS ORDERED: LISINOPRIL 10 MG TAB PO SCH (09:00)
[2019-02-21] MEDS ORDERED: hydroCHLOROthiazide 12.5 MG CAP PO SCH (09:00)
[2019-02-21] MEDS ORDERED: TERBINAFINE 1% TOP SCH (10:00)
[2019-02-21] MEDS ORDERED: SODIUM CHLORIDE 0.9% (FLUSH) 10 ML SYG IV SCH (11:00)
[2019-02-21] MEDS ORDERED: CIPROFLOXACIN 500 MG TAB PO SCH (12:00)
[2019-02-21] MEDS: METOCLOPRAMIDE HCL INJ 10 MG/2 ML VIAL IV ONE ×2 (12:02→12:31)
[2019-02-21] MEDS ORDERED: ONDANSETRON 4 MG TAB PO ONE (12:16)
[2019-02-21] MEDS ORDERED: METOCLOPRAMIDE HCL 5 MG TAB PO ONE (12:17)
[2019-02-21] MEDS ORDERED: KETOROLAC TROMETHAMINE INJ 60 MG/2 ML VIAL IM ONE (16:15)
[2019-02-21] MEDS ORDERED: PROMETHAZINE HCL INJ 25 MG/ML VIAL IM ONE (16:16)
[2019-02-21 16:26] VITALS: BP 111/83; TEMP 97.8; O2SAT 100
--- NOTE | 2019-03-02 14:38 | DS ---
SUPERVISING PHYSICIAN: William Mckay MD ADMISSION DIAGNOSIS: 1. Nausea and vomiting, uncertain etiology, awaiting CT of the abdomen. 2. History of metastatic melanoma, currently undergoing localized tumor injections. 3. History of hypertension but hypotensive on admit secondary to dehydration. 4. Electrolyte imbalance with a mild hypokalemia likely secondary to vomiting and poor oral intact. 5. Acute kidney failure with elevated BUN at 2.12. 6. Urinary tract infection . Cultures pending. 7. Moderate dehydration, unable to tolerate oral intake. DISCHARGE DIAGNOSIS: 1. Intermittent nausea and vomiting, uncertain etiology, with findings on CT scan indicating enlarged gallbladder, but no acute cholecystitis with the patient seen in consultation by Dr. Cross, general surgeon. 2. History of metastatic melanoma, currently undergoing localized tumor injections. 3. History of hypertension, initially hypotensive on admission showing improvement with fluids, felt to be secondary to dehydration.. 4. Electrolyte imbalance on admission with hypokalemia secondary to vomiting and poor oral intake, improved with fluids. 5. Acute kidney failure due to prerenal azotemia showing good response to IV fluids. 6. Urinary tract infection secondary to Escherichia coli with the patient responding to antibiotic therapy. 7. Moderate dehydration, improving with IV fluids but still unable to tolerate significant oral intake.. REASON FOR HOSPITALIZATION: Mr. Spencer is a 63 year-old male patient with a history of melanoma, currently undergoing immunotherapy treatments. He presented to the Emergency Room today complaining of a history of nausea and vomiting. He notes he is unable to keep much of anything down including fluids. He denies any fever or chills. He notes his melanoma has become metastatic and has currently spread to the lymph nodes and esophagus, but again, is receiving local chemotherapy injected into the site of the lesions on his leg. Laboratory studies in the Emergency Room showed he had a normal white count of 7,800 with a hemoglobin of 14.7 and hematocrit 41.1, platelet count 202,000, differential showed to be without a left shift. Chemistries showed an elevated creatinine of 2.12 as well as a BUN at 30 with review of records showing baseline levels with creatinine to be around 0.85. Liver functions were all showing to be within normal limits other than initially did show a little elevation of bilirubin of 1.2 with normal amylase and lipase. Urinalysis showed a significant pyuria with too numerous to count WBCs and positive nitrites with 4+ bacteria. His vital signs showed that he was somewhat hypotensive with initial blood pressure of 86/43, heart rate 65, showing to be afebrile with temperature 97.5. He was given 2 liters of fluid with good response to treatment. Given his history and inability to hold any oral in, the patient is going to be admitted for IV therapy and initiation of parenteral antibiotics for treatment of the urinary tract infection. CONSULTATION: Medical consultation with general surgeon, Dr. Edgar Cross, for nausea and vomiting and rule out acute cholecystitis with impressions per his report. Please see his report for details. LABORATORY: White count on admission 7.8, at discharge was 4.2. Hemoglobin and hematocrit were stable at 12.8 and 32.6. Differential was without a left shift. He did have an elevated ESR at 35. Chemistries on admission showed potassium 3.3, BUN 30, creatinine 2.12. On admission, bilirubin was slightly elevated. Prior to discharge, electrolytes were all within normal limits as well as liver functions. C-reactive protein was slightly elevated at 1.7. Urinalysis initially on admission showed positive nitrites, small amount of leukocyte esterase, 5 to 10 RBCs, too numerous to count WBCs, 4+ bacteria, no epithelials. Repeat urinalysis prior to discharge showed 5 to 10 WBCs, otherwise within normal limits. MICROBIOLOGY: Final urine culture results indicated E. coli that was fairly sensitive, just resistant to ampicillin and intermediate to cefuroxime. RADIOLOGY: Abdominopelvic CT per radiologic interpretation without contrast showed dilated gallbladder without calcified gallstones or pericholecystic inflammation, nonspecific splenomegaly. There was a round 1.8 cm soft tissue density lesion along the right lateral margin of the distal esophagus. Please see that full report for details. EKG showed a normal sinus rhythm with no acute findings. HOSPITAL COURSE: The patient was admitted as noted above for urinary tract infection and biliary colic. He was seen in consultation by Dr. Cross who ultimately did take him to surgery after he was discharged. During his Acute Care stay, he responded well to his antibiotic therapy although he continued to complain of nonspecific discomfort, but had no actual vomiting, emesis or other complicating or acute findings during hospitalization. It was felt that he had clinically stabilized well enough to follow as an outpatient and could continue with oral therapy at home with antibiotics. He was started on ciprofloxacin in the hospital on the morning of discharge and had no problems with the medication. He therefore was discharged home. PLAN: Mr. Spencer was discharged on 02/21/19 with instructions to followup with both Dr. Cross and Dr. Devlin with regards to the gallbladder findings. He was to take medications as directed including antibiotics and to call the admissions office on Friday to schedule a gallbladder scan and return to the Emergency Room for any concerning symptoms. Diet at discharge was gallbladder diet, low fat. Activity to increase as tolerated. MEDICATIONS AT DISCHARGE: 1. Zofran 4 mg q.4h. as needed, #30, no refills. 2. Phenergan 25 mg tablets q.4h. as needed for vomiting, #30, no refills. 3. Ciprofloxacin 500 mg twice a day, #14, no refills. 4. Phenergan suppository 12.5 mg rectally q.4h. as needed, #12, no refills. 5. Lamisil cream topically to toes twice daily, no refills. He is to followup with Dr. Devlin. DISPOSITION: The patient was discharged to care of family members. CONDITION AT DISCHARGE: Stable and improved. #[id number] [facility]
== END 2019-02-21 18:15 | disposition home or self-care (01) ==
LOC: ER 16:58 → MS 19:24
PROVIDERS: ADMIT Nurse Practitioner Family; ATTEND Nurse Practitioner Family
DX: E86.0 Dehydration (principal); N17.9 Acute kidney failure, unspecified; E87.6 Hypokalemia; E87.8 Other disorders of electrolyte and fluid balance, not elsewhere classified; N39.0 Urinary tract infection, site not specified; B96.89 Other specified bacterial agents as the cause of diseases classified elsewhere; K82.8 Other specified diseases of gallbladder; R53.1 Weakness; R51 Headache; C43.72 Malignant melanoma of left lower limb, including hip; C79.9 Secondary malignant neoplasm of unspecified site; G89.29 Other chronic pain; M48.56XA Collapsed vertebra, not elsewhere classified, lumbar region, initial encounter for fracture; I10 Essential (primary) hypertension; I44.0 Atrioventricular block, first degree; K76.0 Fatty (change of) liver, not elsewhere classified; R16.1 Splenomegaly, not elsewhere classified; Z92.21 Personal history of antineoplastic chemotherapy; Z79.891 Long term (current) use of opiate analgesic; Z79.899 Other long term (current) drug therapy; Z90.49 Acquired absence of other specified parts of digestive tract
CPT/HCPCS: 96366 ×3; 96367; 96365; 96375 ×2; 96376 ×2; 96372; J0696 ×2; J1885; J2270 ×5; J2405; J2550 ×2; J7030 ×2; A4216; J1650; J7050 ×2; 80048; 80053 ×3; 87086; 36415 ×3; 82150; 87077; 87186; 81001 ×2; 80076; 86140; 85025 ×2; 83690; 83735; 85651; 74176; 94760 ×3; 99285; 93005

== ENCOUNTER → 2019-02-22 | Outpatient (CLI) | payer MEDICARE ==
--- NOTE | 2019-02-22 20:41 | US ---
EXAM DESCRIPTION: Gall Bladder: ULTRASOUND. CLINICAL HISTORY: N/V COMPARISON: CT scan of the abdomen and pelvis without contrast 02/20/2019. TECHNIQUE: Transabdominal scanning: Herman-scale and Doppler modes. FINDINGS: Gallbladder: Slightly contracted and gravity dependent sludge. No fluid around the gallbladder. Wall thickening 4.6 mm Non-tender with transducer pressure. Common bile duct: caliber 5 mm within normal limits. Liver: Increased echogenicity; the liver is dense and posterior capsule and structures difficult to visualize contour liver capsule smooth where seen. No fluid around the liver. Intrahepatic biliary ducts normal caliber. Doppler hepatopedal flow portal vein.. Long axis right lobe 18.7 cm. Pancreas: Limited visualization. Duct not dilated. Aorta: Proximal caliber 1.8 cm. Right kidney: 13.7 cm long axis with normal cortical thickness and echogenicity. No echogenic stones, no hydronephrosis, no perirenal fluid. Subcortical 1.6 x 1.5 cm cyst.. IMPRESSION: 1. Slightly contracted gallbladder with wall thickening and gravity dependent sludge. No stones. Nontender with transducer pressure. If gallbladder dysfunction is suspected clinically, consider radionuclide hepatobiliary imaging. 2. Fatty liver with mild enlargement. Normal ducts. Normal hepatopedal flow in the portal vein. Smooth capsule with no ascites. 3. Right kidney with 1.6 cm subcortical cyst, otherwise unremarkable. Normal caliber of the proximal abdominal aorta. Limited visualization of the pancreas. Electronically signed by: Henry Valdes MD 02/22/2019 8:31 PM CDT
== END ==
LOC: US 13:02
PROVIDERS: ATTEND Surgery
DX: K82.9 Disease of gallbladder, unspecified (principal); K76.0 Fatty (change of) liver, not elsewhere classified; N28.1 Cyst of kidney, acquired

== ENCOUNTER → 2019-02-24 | Outpatient (CLI) | payer MEDICARE ==
--- NOTE | 2019-02-24 11:05 | NM ---
EXAM DESCRIPTION: Hepatobiliary w/CCK: Nuclear Medicine. CLINICAL HISTORY: ABDOMINAL PAIN NAUSEA VOMITING. Also back pain. Patient taking chemotherapy. COMPARISON: Gallbladder ultrasound 02/22/2019. Abdominal pelvic CT scan in 17/10/2018. TECHNIQUE: Patient was given 8.4 mCi of technetium 99 M mebrofenin (Choletec) radiopharmaceutical IV. Anterior gamma camera images were obtained of the right upper quadrant at 5 minute intervals for one hour . The patient was then given 2.5 mcg CCK IV infusion over 30-minute interval. Gallbladder ejection fraction was evaluated by measuring diminishing radioactivity in the gallbladder, over 30 min interval. FINDINGS: After radiopharmaceutical was administered IV, almost instantaneous visualization of the entire liver. Photopenic area corresponds to the enlarged gallbladder as seen on prior CT scan. Timely visualization of the gallbladder common bile duct and small intestine. After CCK IV infusion began, no increase of symptoms. The decrease in gallbladder activity at 20 minutes was 19%. Decreasing gallbladder activity at 30 minutes is 24%. IMPRESSION: 1. No intrahepatic or extrahepatic biliary obstruction. Large gallbladder represents photopenic region over the right hepatic lobe. 2. Gallbladder ejection fraction 19% in 30 minutes which is abnormal low. This is consistent with acalculous cholecystitis. No obstruction of the common bile duct. CRITICAL COMMUNICATION: The critical value was communicated by text message from Dr. Valdes at 1041 hours, 02/24/2019, with text acknowledgment by Dr. Woo Cross at approximately 1042 hours, on 02/24/2019. Electronically signed by: Henry Valdes MD 02/24/2019 11:03 AM CDT
== END ==
LOC: NM 08:03
PROVIDERS: ATTEND Surgery
DX: K82.9 Disease of gallbladder, unspecified (principal)
CPT/HCPCS: 78227; A9537

== ENCOUNTER 2019-02-25 05:44 | Day surgery (SDC) | payer MEDICARE ==
[2019-02-25] MEDS ORDERED: PROPOFOL 200 MG/20 ML VIAL IV ONE (07:00)
[2019-02-25] MEDS ORDERED: raNITIdine HCL INJ 25 MG/ML VIAL ONE (07:00)
[2019-02-25] MEDS ORDERED: PHENYLEPHRINE INJ 1ML 10 MG/ML VIAL ONE (07:00)
[2019-02-25] MEDS ORDERED: SODIUM CHLORIDE 0.9% 50 ML VIAL ONE (07:00)
[2019-02-25] MEDS ORDERED: LIDOCAINE 1% 10 ML VIAL INJ ONE (07:00)
[2019-02-25] MEDS ORDERED: DEXAMETHASONE INJ 10 MG/ML VIAL ONE (07:00)
[2019-02-25] MEDS ORDERED: LACTATED RINGERS 1,000 ML ONE ×2 (11:09→14:42)
[2019-02-25] MEDS ORDERED: BUPIVACAINE 0.5% W/EPI 30 ML VIAL INJ ONE (13:55)
[2019-02-25] MEDS ORDERED: SODIUM CHLORIDE 0.9% 1000ML 1,000 ML ONE (13:55)
[2019-02-25] MEDS ORDERED: ONDANSETRON INJ 4 MG/2 ML VIAL ONE (14:53)
[2019-02-25] MEDS ORDERED: fentaNYL CITRATE INJ 50 MCG/ML AMP ONE (15:37)
[2019-02-25] MEDS ORDERED: SUCCINYLCHOLINE CHLORIDE 200 MG/10 ML VIAL ONE (15:37)
[2019-02-25] MEDS ORDERED: ROCURONIUM BROMIDE 10 MG/ML VIAL ONE (15:37)
[2019-02-25] MEDS ORDERED: MIDAZOLAM INJ 5 MG/5 ML VIAL ONE (15:37)
[2019-02-25] MEDS ORDERED: KETAMINE HCL 50 MG/ML SYG IV ONE (15:38)
[2019-02-25] MEDS ORDERED: SUGAMMADEX SODIUM 200 MG/2 ML VIAL IV ONE (16:44)
[2019-02-25] MEDS ORDERED: ELECTROLYTE-A 1,000 ML IVS ONE (16:47)
[2019-02-25] MEDS: HYDROmorphone HCL INJ 2 MG/ML VIAL ONE ×2 (17:35→17:46)
[2019-02-25] MEDS ORDERED: HYDROcodone 5MG/APAP 325MG 1 EA TAB PO ONE (19:20)
[2019-02-25 20:15] VITALS: BP 138/86; TEMP 97.5; O2SAT 95
--- NOTE | 2019-02-26 09:18 | OP ---
DATE OF PROCEDURE: 02/25/19 PREOPERATIVE DIAGNOSIS: 1. Biliary dyskinesia and sludge. POSTOPERATIVE DIAGNOSIS: 1. Biliary dyskinesia and sludge. PROCEDURE: 1. Laparoscopic cholecystectomy. SURGEON: Edgar Cross MD. ANESTHESIA: General and local. FINDINGS: He did have a distended gallbladder. No other abnormalities in the quick scan of the abdomen seen. COMPLICATIONS: None. ESTIMATED BLOOD LOSS: Minimal. SPECIMEN: Gallbladder. CONDITION: Stable. PLAN: Discharge. INDICATION: This is a male with a history of abdominal pain, intermittent epigastric, right upper quadrant and the back. Now it is more generalized. It was postprandial. He had been evaluated on the weekend and seen to have only a distended gallbladder on CT scan. He was discharged and followed up with an ultrasound that showed sludge and a HIDA scan that showed a reduced ejection fraction. His symptoms although to completely classic for gallbladder attacks, were consistent with dyskinesia. He was just having a lot of persisted pain, so we consented him for gallbladder removal. PROCEDURE: The patient was brought to the Operative Suite in supine position. General anesthesia was induced. He was prepped and draped in sterile fashion. Marcaine 0.5% with epinephrine was used all incision sites while maintaining upward traction. A sonal was made into the base of the umbilicus. Veress needle was introduced. There was free flow of fluid into the peritoneal cavity which was insufflated to appropriate level with CO2 gas. The 5 mm trocar was placed followed by the camera. There was no evidence of bleeding or bowel injury. The patient was positioned and subxiphoid and lateral ports were placed. The gallbladder fundus was easily identified. The gallbladder was distended and large. It was grasped and retracted superiorly and laterally. The infundibulum was grasped. The infundibular structure was dissected free. The duct and artery were clearly visualized through the triangle of Calot. The duct and artery were triply ligated. The gallbladder was then dissected off the fossa and totally removed in the EndoCatch bag. Upon examination, there were some small stones in the gallbladder. The gallbladder fossa was examined. It remained hemostatic under a little pressure. The clips were examined and were intact. There was no bleeding or bile leak. The subxiphoid fascia was then closed with 0 Vicryl using the suture passer. It was airtight and non-bleeding. The remaining trocars were removed. The abdomen was desufflated. The wounds were closed with Monocryl. Dressings were applied. The patient was awakened and taken to Recovery in stable condition to be discharged. #[id number] [facility]
== END 2019-02-25 19:55 | disposition home or self-care (01) ==
LOC: AMB 05:44
PROVIDERS: ATTEND Surgery
DX: K81.1 Chronic cholecystitis (principal); Z79.899 Other long term (current) drug therapy
CPT/HCPCS: 00790; 47562; A4216; J0330; J1100; J1170; J2250; J2405; J2780; J3010; J3490; J7030; J7120

== ENCOUNTER 2019-03-09 10:27 | Emergency (ER) | payer MEDICARE ==
[2019-03-09] MEDS ORDERED: ONDANSETRON INJ 4 MG/2 ML VIAL IV ONE (10:46)
[2019-03-09] MEDS ORDERED: LACTATED RINGERS 1,000 ML IVS ONE (10:46)
[2019-03-09] MEDS ORDERED: MORPHINE SULFATE INJ 10 MG/ML VIAL IV ONE (11:26)
[2019-03-09] MEDS ORDERED: PROMETHAZINE HCL INJ 12.5 MG in SODIUM CHLORIDE 0.9% 50ML 50 ML IVPB ONE (11:26)
[2019-03-09] MEDS ORDERED: SODIUM CHLORIDE 0.9% 50ML 50 ML ONE (11:28)
[2019-03-09] MEDS ORDERED: PROMETHAZINE HCL INJ 25 MG/ML VIAL ONE (11:28)
[2019-03-09 12:14] VITALS: O2SAT 92
--- NOTE | 2019-03-09 12:34 | ED.PDOC ---
History of Present Illness - General Chief Complaint: GI Problem Stated Complaint: n/v/d Time Seen by Provider: 03/09/19 10:42 Information Source: patient, RN notes reviewed, Vital Signs reviewed, family, RN/MD, old records Exam Limitations: no limitations Additional Information: Patient is a 63 yo M with recent cholecystectomy presenting with upper abdominal pain over the last few months. He has had a 40lb weight loss over the span of four to five months. He denies fevers, chills, dysuria, hematuria, or urinary frequency. There is no cough or congestion. He notes that the pain is in the upper abdomen and does not radiate. He is having normal bowel movements. He does note that the pain improved for three days following the cholecystectomy. He does note that he has been getting full easily and has had a decreased appetite. - History of Present Illness Abdominal Pain Onset Location: RUQ, LUQ, epigastric Quality: aching, intermittent Timing/Duration: 1 week Improving Factors: nothing Worsening Factors: movement Associated Symptoms: fatigue, nausea/vomiting Review of Systems - Review of Systems Constitutional: States: see HPI, malaise EENTM: States: no symptoms reported Respiratory: States: no symptoms reported Cardiology: States: no symptoms reported Gastrointestinal/Abdominal: States: abdominal pain, nausea, vomiting Genitourinary: States: no symptoms reported Skin: States: no symptoms reported Neurological: States: no symptoms reported Past Medical History (General) - Patient Medical History Hx Seizures: No Hx Stroke: No Hx Dementia: No Hx Asthma: No Hx of COPD: No Hx Cardiac Disorders: No Hx Congestive Heart Failure: No Hx Pacemaker: No Hx Hypertension: Yes - currently on medication Hx Diabetes: No Hx Cancer: Yes - melanoma LLE Hx MRSA: No Surgical History: cholecystectomy - Vaccination History Hx Tetanus, Diphtheria Vaccination: No Hx Influenza Vaccination: No Hx Pneumococcal Vaccination: Yes - Social History Hx Tobacco Use: No Hx Alcohol Use: No Hx Substance Use: No Hx Physical Abuse: No Hx Emotional Abuse: No Family Medical History - Family History Mother Family History: No Known Hx Family;Other: mother COPD Physical Exam - Physical Exam General Appearance: Anxious, Obvious distress, Well Developed, Well Groomed, Well Nourished Eyes, Ears, Nose, Throat Exam: PERRL/EOMI Neck: non-tender Respiratory: chest non-tender, lungs clear, normal breath sounds, no respiratory distress, no accessory muscle use Cardiovascular/Chest: normal peripheral pulses, regular rate, rhythm, no edema, no gallop, no JVD Peripheral Pulses: No deficit Gastrointestinal/Abdominal: normal bowel sounds, non tender Progress - Progress Progress: DDx: SMA syndrome, Pancreatitis, Biloma, SBO, Medication Reaction, UTI, Pyelonephritis, Nephrolithiasis Patient presents for evaluation of abdominal pain, nausea, and vomiting over the paste two to three months. Recent PET scan was performed without any intra- abdominal metastases. He was found to have no signs of pancreatitis with normal lipase. UA was not significant for signs of renal stone or UTI. There was no leukocytosis on CMP. Given his recent weight loss and early satiety, CTA of the Abdomen Pelvis was obtained to assess for signs of SMA Syndrome. There were no acute findings on imaging. There were no signs of pancreatitis on imaging or signs of biloma. The symptoms could be secondary to taking Narcotics on an empty stomach. He has not been utilizing the Phenergren suppositories as prescribed. Patient will be discharged home with plans for outpatient follow-up. - Results/Orders Results/Orders: 03/09/19 10:50 BLOOD CULTURE Stat 03/09/19 13:44 Urine Culture Stat Laboratory Results - last 24 hr 03/09/19 03/09/19 03/09/19 10:43 10:43 10:43 WBC 10.1 RBC 4.83 Hgb 14.5 Hct 40.9 L MCV 84.7 MCH 29.9 MCHC 35.3 RDW 13.0 Plt Count 262 MPV 7.2 L Absolute Neuts (auto) 6.10 Absolute Lymphs (auto) 2.70 Absolute Monos (auto) 0.80 Absolute Eos (auto) 0.30 Absolute Basos (auto) 0.10 Neutrophils % 60.6 Lymphocytes % 27.1 Monocytes % 7.6 Eosinophils % 3.4 Basophils % 1.3 Sodium 136 Potassium 3.6 Chloride 98 L Carbon Dioxide 22 Anion Gap 19.6 H BUN 17 Creatinine 0.96 BUN/Creatinine Ratio 17.7 Random Glucose 99 Serum Osmolality 273.5 L Lactic Acid 1.5 Calcium 9.5 Total Bilirubin 1.4 H AST 28 ALT 22 Alkaline Phosphatase 76 Serum Total Protein 8.1 Albumin 4.2 Globulin 3.9 H Albumin/Globulin Ratio 1.1 Lipase 37 Urine Color Urine Appearance Urine pH Ur Specific [place] Urine Protein Urine Glucose (UA) Urine Ketones Urine Blood Urine Nitrite Urine Bilirubin Urine Urobilinogen Ur Leukocyte Esterase Urine RBC Urine WBC Ur Epithelial Cells Amorphous Sediment Urine Bacteria Urine Opiates Screen Urine Barbiturates Ur Phencyclidine Scrn U Amphetamin/Meth Scrn U Benzodiazepines Scrn U Cocaine Metab Screen U Cannabinoids Screen 03/09/19 03/09/19 13:03 13:03 WBC RBC Hgb Hct MCV MCH MCHC RDW Plt Count MPV Absolute Neuts (auto) Absolute Lymphs (auto) Absolute Monos (auto) Absolute Eos (auto) Absolute Basos (auto) Neutrophils % Lymphocytes % Monocytes % Eosinophils % Basophils % Sodium Potassium Chloride Carbon Dioxide Anion Gap BUN Creatinine BUN/Creatinine Ratio Random Glucose Serum Osmolality Lactic Acid Calcium Total Bilirubin AST ALT Alkaline Phosphatase Serum Total Protein Albumin Globulin Albumin/Globulin Ratio Lipase Urine Color Yellow Urine Appearance Clear Urine pH 5.0 Ur Specific [place] <= 1.005 Urine Protein Negative Urine Glucose (UA) Negative Urine Ketones Negative Urine Blood Negative Urine Nitrite Negative Urine Bilirubin Negative Urine Urobilinogen 0.2 Ur Leukocyte Esterase Negative Urine RBC 0 Urine WBC 0 Ur Epithelial Cells 0 Amorphous Sediment 1+ Urine Bacteria 0 Urine Opiates Screen Positive H Urine Barbiturates Negative Ur Phencyclidine Scrn Negative U Amphetamin/Meth Scrn Negative U Benzodiazepines Scrn Negative U Cocaine Metab Screen Negative U Cannabinoids Screen Negative CT Abdomen Pelvis: COMPARISON: CT without contrast February 20, 2019 TECHNIQUE: Postcontrast CTA images of the abdomen are obtained with coronal and sagittal reconstructed images. Three-D reconstructed images of the arterial vasculature are performed. This exam was performed according to our departmental dose-optimization program, which includes automated exposure control, adjustment of the mA and/or kV according to patient size and/or use of iterative reconstruction technique . FINDINGS: The visualized lung bases show mild peripheral interstitial thickening. Interstitial nodular changes in the medial left lung base are more prominent than previous measuring maximum 1.7 cm. Soft tissue attenuation mass measuring 2.1 cm to the right of the distal esophagus is again seen with less than 1 cm lymph nodes in the left distal esophagus. Liver is enlarged with diffuse fatty replacement. The liver measures 23.2 cm. Post surgical changes from cholecystectomy are new from previous exam. The spleen, pancreas, and adrenal glands are unremarkable. No nephrolithiasis. Fluid attenuation cortical cyst in the left kidney lower pole are seen. Stomach is poorly distended and not well evaluated. Moderate increased volume of formed fecal material in the visualized colon. Moderate scattered diverticuli mostly the descending colon without associated inflammatory changes or fluid collections. Surgical clips from previous appendectomy. Fat attenuation probable lipoma deep to the gluteus dorian muscle on the right. No pathologically enlarged abdominal or retroperitoneal lymphadenopathy. Mild scattered mostly calcified and mild noncalcified plaque throughout the abdominal aorta and branch vessels. No aortic aneurysm or stenosis. Normal origin of the celiac artery, SMA, and [place]IM[place]. No significant plaque or vessel narrowing of the inferior mesenteric artery. No mass effect of the SMA on the duodenum. Right main renal artery and accessory renal artery to the upper pole of the right kidney show no significant plaque or vessel narrowing. Accessory renal artery to the lower pole right kidney arising from the anterior distal abdominal aorta shows no high-grade or flow limiting stenosis. Mild calcified plaque at the origin of the left main renal artery resulting in mild to moderate stenosis of the vessel. 3 accessory renal arteries to the left kidney upper middle and lower poles are seen with the mid to lower pole accessory renal arteries arising from the mid to distal abdominal aorta. Small fat-containing umbilical hernia. Moderate to severe degenerative changes of the spine. Chronic L5 spondylolysis with grade 1 spondylolisthesis resulting in severe bilateral foraminal encroachment. IMPRESSION: Mild atherosclerotic disease of the abdominal aorta with tortuosity of the aortoiliac system. No aneurysmal dilatation or flow limiting stenosis. No significant atherosclerotic disease or flow limiting stenosis of the superior mesenteric artery or mesenteric vessels. No CTA evidence of SMA syndrome. 2 right and 3 left accessory renal arteries are identified. Colon diverticulosis without CT evidence of diverticulitis. Hepatomegaly with diffuse fatty infiltration of the liver. Electronically signed by: Ryan Mccray MD 03/09/2019 12:45 PM CDT Departure - Departure Clinical Impression: Abdominal pain, Vomiting, Hiatal hernia, Dehydration Disposition: Discharge to Home or Self Care Departure Forms: ED Discharge - Pt. Copy, Patient Portal Self Enrollment Instructions: DI for Abdominal Pain-Adult Diet: bland diet Activity: increase activity as tolerated Referrals: KATLIN AMEZQUITA MD [Primary Care Provider] - 1-2 Weeks Home Medications: Ambulatory Orders RX: HYDROcodone 10MG/APAP 325MG [[place] 10/325] 1 ea PO Q6HR PRN 02/19/19 RX: Ondansetron HCl [Zofran] 8 mg PO Q8H PRN 02/20/19 Promethazine Supp [Phenergan Suppository] 12.5 mg MD Q4H PRN #12 sup 02/21/19 Promethazine Tab [Phenergan Tablet] 25 mg PO Q4HR PRN #30 tab 02/21/19 Comments: Carlos Hope D.O. [facility] #[id number]
--- NOTE | 2019-03-09 12:46 | CT ---
EXAM DESCRIPTION: CTA Abdomen CLINICAL HISTORY: Abd pain, N/V. Weight Loss. Assess SMA Syndrome COMPARISON: CT without contrast February 20, 2019 TECHNIQUE: Postcontrast CTA images of the abdomen are obtained with coronal and sagittal reconstructed images. Three-D reconstructed images of the arterial vasculature are performed. This exam was performed according to our departmental dose-optimization program, which includes automated exposure control, adjustment of the mA and/or kV according to patient size and/or use of iterative reconstruction technique . FINDINGS: The visualized lung bases show mild peripheral interstitial thickening. Interstitial nodular changes in the medial left lung base are more prominent than previous measuring maximum 1.7 cm. Soft tissue attenuation mass measuring 2.1 cm to the right of the distal esophagus is again seen with less than 1 cm lymph nodes in the left distal esophagus. Liver is enlarged with diffuse fatty replacement. The liver measures 23.2 cm. Post surgical changes from cholecystectomy are new from previous exam. The spleen, pancreas, and adrenal glands are unremarkable. No nephrolithiasis. Fluid attenuation cortical cyst in the left kidney lower pole are seen. Stomach is poorly distended and not well evaluated. Moderate increased volume of formed fecal material in the visualized colon. Moderate scattered diverticuli mostly the descending colon without associated inflammatory changes or fluid collections. Surgical clips from previous appendectomy. Fat attenuation probable lipoma deep to the gluteus dorian muscle on the right. No pathologically enlarged abdominal or retroperitoneal lymphadenopathy. Mild scattered mostly calcified and mild noncalcified plaque throughout the abdominal aorta and branch vessels. No aortic aneurysm or stenosis. Normal origin of the celiac artery, SMA, and [place]. No significant plaque or vessel narrowing of the inferior mesenteric artery. No mass effect of the SMA on the duodenum. Right main renal artery and accessory renal artery to the upper pole of the right kidney show no significant plaque or vessel narrowing. Accessory renal artery to the lower pole right kidney arising from the anterior distal abdominal aorta shows no high-grade or flow limiting stenosis. Mild calcified plaque at the origin of the left main renal artery resulting in mild to moderate stenosis of the vessel. 3 accessory renal arteries to the left kidney upper middle and lower poles are seen with the mid to lower pole accessory renal arteries arising from the mid to distal abdominal aorta. Small fat-containing umbilical hernia. Moderate to severe degenerative changes of the spine. Chronic L5 spondylolysis with grade 1 spondylolisthesis resulting in severe bilateral foraminal encroachment. IMPRESSION: Mild atherosclerotic disease of the abdominal aorta with tortuosity of the aortoiliac system. No aneurysmal dilatation or flow limiting stenosis. No significant atherosclerotic disease or flow limiting stenosis of the superior mesenteric artery or mesenteric vessels. No CTA evidence of SMA syndrome. 2 right and 3 left accessory renal arteries are identified. Colon diverticulosis without CT evidence of diverticulitis. Hepatomegaly with diffuse fatty infiltration of the liver. Electronically signed by: Ryan Mccray MD 03/09/2019 12:45 PM CDT
[2019-03-09 14:07] VITALS: BP 113/74; TEMP 100.1
== END 2019-03-09 14:07 | disposition home or self-care (01) ==
LOC: ER 10:27
DX: R11.2 Nausea with vomiting, unspecified (principal); E86.0 Dehydration; R10.10 Upper abdominal pain, unspecified; K44.9 Diaphragmatic hernia without obstruction or gangrene; K57.30 Diverticulosis of large intestine without perforation or abscess without bleeding; K76.0 Fatty (change of) liver, not elsewhere classified; K42.9 Umbilical hernia without obstruction or gangrene; I10 Essential (primary) hypertension; Z90.49 Acquired absence of other specified parts of digestive tract; Z85.820 Personal history of malignant melanoma of skin
CPT/HCPCS: 36415; 74175; 80053; 80307; 81001; 83605; 83690; 85025; 87040; A4216; J2270; J2405; J2550; J7120

== ENCOUNTER 2019-03-15 16:52 | Emergency (ER) | payer MEDICARE ==
[2019-03-15 17:23] VITALS: TEMP 98
--- NOTE | 2019-03-15 17:24 | ED.PDOC ---
History of Present Illness - General Chief Complaint: General Stated Complaint: vomiting,pain all over Time Seen by Provider: 03/15/19 17:23 Source: patient, family Exam Limitations: no limitations - History of Present Illness Initial Comments: 63 yo M who presents from PCP office for further workup and concerns for dehydration with BP of 74/44 at office. Pt is reporting sx of decreased appetite, n/v, intermittent loose stool, weight loss of 50 pounds over the past several months, diffuse constant non radiating dull abd pain. Pt takes norco for chronic back pain, has been trying to stop and thinks sx are related to withdrawal. Hx of melena to LLE, currently only on local chemotherapy directly to the site, no systemic chemotherapy, spread to lymph node in esophagus. Denies f/c, cough, congestion, CP, SOB, urinary sx, hematuria, hematemesis, hematochezia, melena. Allergies/Adverse Reactions: Allergies NO KNOWN ALLERGY Allergy (Verified 02/25/19 11:45) Home Medications: Ambulatory Orders RX: HYDROcodone 10MG/APAP 325MG [[place] 10/325] 1 ea PO Q6HR PRN 02/19/19 RX: Ondansetron HCl [Zofran] 8 mg PO Q8H PRN 02/20/19 Promethazine Supp [Phenergan Suppository] 12.5 mg LA Q4H PRN #12 sup 02/21/19 Promethazine Tab [Phenergan Tablet] 25 mg PO Q4HR PRN #30 tab 02/21/19 Review of Systems - Review of Systems Constitutional: States: other - +weight loss. Denies: chills, fever EENTM: Denies: blurred vision, double vision Respiratory: Denies: cough, orthopnea, short of breath Cardiology: Denies: chest pain, edema, palpitations Gastrointestinal/Abdominal: States: abdominal pain, diarrhea, nausea, vomiting Genitourinary: Denies: discharge, dysuria, frequency, hematuria Musculoskeletal: Denies: back pain, joint pain, joint swelling, neck pain Skin: Denies: lesions, rash Neurological: Denies: headache, numbness, weakness Endocrine: States: unexplained weight loss. Denies: increased hunger, increased thirst, increased urine Hematologic/Lymphatic: Denies: easy bleeding, easy bruising Past Medical History (General) - Patient Medical History Hx Seizures: No Hx Stroke: No Hx Dementia: No Hx Asthma: No Hx of COPD: No Hx Cardiac Disorders: No Hx Congestive Heart Failure: No Hx Pacemaker: No Hx Hypertension: Yes - currently on medication Hx Diabetes: No Hx Cancer: Yes - melanoma LLE Hx MRSA: No Surgical History: appendectomy, cholecystectomy - Vaccination History Hx Tetanus, Diphtheria Vaccination: No Hx Influenza Vaccination: No Hx Pneumococcal Vaccination: Yes - Social History Hx Tobacco Use: No Hx Alcohol Use: No Hx Substance Use: No Hx Physical Abuse: No Hx Emotional Abuse: No Family Medical History - Family History Mother Family History: No Known Hx Family;Other: mother COPD Physical Exam - Physical Exam General Appearance: Alert, Well Developed, Well Nourished Eye Exam: bilateral normal Ears, Nose, Throat: other - Dry mucous membranes, no pharyngeal erythema Neck: non-tender, full range of motion, supple Respiratory: chest non-tender, lungs clear, normal breath sounds, no respiratory distress, no accessory muscle use Cardiovascular/Chest: normal peripheral pulses, regular rate, rhythm, no edema, no gallop, no JVD, no murmur Gastrointestinal/Abdominal: normal bowel sounds, soft, no organomegaly, no pulsatile mass, tenderness - generalized, mild, other - No distention, guarding, rebound, hernia Back Exam: normal inspection, no CVA tenderness, no vertebral tenderness Extremity: normal range of motion, non-tender, normal inspection Neurologic: fly maker II-XII nml as tested, no motor/sensory deficits, alert, oriented x 3 Skin Exam: normal color, warm/dry Progress - Progress Progress: 03/15/19 20:41 Pt resting comfortably, IV fluids not infusing well 2/2 pt continuing to have his arm bent, asking for pain medication, will give ofirmev, question of narcotic dependence. MYCHAL noted on labs, recent Cr wnl. 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 Will transfer. 03/15/19 21:[address] Tulio Vu, [facility], accepts pt for transfer. 03/15/19 21:29 Ofirmev not available, pt declines norco, will give po tylenol. Karmen Zarate MD Emergency Medicine Physician Billing Number [id number] 03/15/19 22:21 03/15/19 22:24 - Results/Orders Results/Orders: 03/15/19 17:46 Abdoment/Pelvis w/o Contrast [CT] Stat Sodium Chloride 0.9% 1000ML [Ns 1000 ml] 1,000 ml IVS .QD 03/15/19 17:47 Hold Metformin x 48Hrs [id number] 03/15/19 18:00 EKG STAT 03/15/19 20:43 Acetaminophen IV 1000MG [Ofirmev 1000MG IV] 1,000 mg Premix Bottle 1 bottle IVPB ONCE Laboratory Results - last 24 hr 03/15/19 03/15/19 03/15/19 17:50 17:50 17:50 WBC 5.8 RBC 4.83 Hgb 14.2 Hct 40.6 L MCV 84.2 MCH 29.4 MCHC 34.9 RDW 13.0 Plt Count 246 MPV 7.3 L Absolute Neuts (auto) 2.40 Absolute Lymphs (auto) 2.20 Absolute Monos (auto) 0.90 H Absolute Eos (auto) 0.30 Absolute Basos (auto) 0.10 Neutrophils % 41.7 L Lymphocytes % 37.5 Monocytes % 15.1 H Eosinophils % 4.4 Basophils % 1.3 Sodium 135 Potassium 3.7 Chloride 100 L Carbon Dioxide 18 L Anion Gap 20.7 H BUN 32 H Creatinine 4.75 H BUN/Creatinine Ratio 6.7 L Random Glucose 96 Serum Osmolality 276.9 Calcium 9.3 Total Bilirubin 0.6 AST 27 ALT 17 Alkaline Phosphatase 69 Troponin I Serum Total Protein 7.7 Albumin 3.9 Globulin 3.8 H Albumin/Globulin Ratio 1.0 L Lipase 41 03/15/19 17:50 WBC RBC Hgb Hct MCV MCH MCHC RDW Plt Count MPV Absolute Neuts (auto) Absolute Lymphs (auto) Absolute Monos (auto) Absolute Eos (auto) Absolute Basos (auto) Neutrophils % Lymphocytes % Monocytes % Eosinophils % Basophils % Sodium Potassium Chloride Carbon Dioxide Anion Gap BUN Creatinine BUN/Creatinine Ratio Random Glucose Serum Osmolality Calcium Total Bilirubin AST ALT Alkaline Phosphatase Troponin I < 0.02 Serum Total Protein Albumin Globulin Albumin/Globulin Ratio Lipase CT abd/pelvis without contrast: IMPRESSION: - No renal/ureteral stone or hydroureteronephrosis seen bilaterally. An underlying renal mass and pyelonephritis cannot be ruled out without intravenous contrast. - At least moderate retention of fecal material and fluid in the colon without apparent bowel obstruction. - Possible small hiatal hernia. - Noted again is some infiltrate/atelectasis in the lung bases, especially dependently and left greater than right with some nodularity, grossly stable from previous. Noted again is a post likely small lymph node adjacent to the distal esophagus. Clinical correlation is suggested. Consider further evaluation/follow-up as per protocol. - Grossly stable chronic findings. - Study provided limited by lack of intravenous contrast and by streak artifact. Thank you for allowing us to participate in the care of this patient. Electronically signed by: aVlentin Donovan MD 03/15/2019 7:48 PM CDT - 9193 CT abd/pelvis with contrast from 03/09/19: IMPRESSION: Mild atherosclerotic disease of the abdominal aorta with tortuosity of the aortoiliac system. No aneurysmal dilatation or flow limiting stenosis. No significant atherosclerotic disease or flow limiting stenosis of the superior mesenteric artery or mesenteric vessels. No CTA evidence of SMA syndrome. 2 right and 3 left accessory renal arteries are identified. Colon diverticulosis without CT evidence of diverticulitis. Hepatomegaly with diffuse fatty infiltration of the liver. Electronically signed by: Ryan Mccray MD 03/09/2019 12:45 PM CDT - 8005 ADDENDUM #1 Impression: Left lower lobe lung nodules measuring up to [address] at 3 months, PET/CT, or tissue sampling. Electronically signed by: Ryan Mccray MD 03/09/2019 1:17 PM CDT - 6799 - EKG/XRAY/CT EKG: Sinus Comments: NSR, Rate 76, 1st degree AV block, Nonspecific ST/T wave, No hyperacute T Departure - Departure Clinical Impression: Acute renal failure Qualifiers: Acute renal failure type: unspecified Qualified Code(s): N17.9 - Acute kidney failure, unspecified Time of Disposition: 20:41 Disposition: Transfer to Hospital Condition: Fair Referrals: KATLIN AMEZQUITA MD [Primary Care Provider] - 1-2 Weeks Home Medications: Ambulatory Orders RX: HYDROcodone 10MG/APAP 325MG [[place] 10/325] 1 ea PO Q6HR PRN 02/19/19 RX: Ondansetron HCl [Zofran] 8 mg PO Q8H PRN 02/20/19 Promethazine Supp [Phenergan Suppository] 12.5 mg LA Q4H PRN #12 sup 02/21/19 Promethazine Tab [Phenergan Tablet] 25 mg PO Q4HR PRN #30 tab 02/21/19
[2019-03-15] MEDS ORDERED: ONDANSETRON INJ 4 MG/2 ML VIAL IV ONE (17:46)
[2019-03-15] MEDS ORDERED: KETOROLAC TROMETHAMINE INJ 30 MG/ML VIAL IV ONE (17:46)
[2019-03-15] MEDS ORDERED: SODIUM CHLORIDE 0.9% 1000ML 1,000 ML IVS PRN (17:46)
[2019-03-15] MEDS ORDERED: ACETAMINOPHEN IV 1000MG 1,000 MG in PREMIX BOTTLE 1 BOTTLE IVPB ONE (20:43)
[2019-03-15] MEDS ORDERED: HYDROcodone 5MG/APAP 325MG 1 EA TAB PO ONE (21:43)
[2019-03-15] MEDS ORDERED: SODIUM CHLORIDE 0.9% 1000ML 1,000 ML IVS ONE (21:45)
[2019-03-15] MEDS ORDERED: ACETAMINOPHEN 500 MG TAB ONE (21:49)
[2019-03-15] MEDS ORDERED: ACETAMINOPHEN 500 MG TAB PO ONE (21:49)
[2019-03-15 22:19] VITALS: BP 88/66; O2SAT 94
== END 2019-03-15 22:19 | disposition short-term general hospital (02) ==
LOC: ER 16:52
DX: N17.9 Acute kidney failure, unspecified (principal); R11.2 Nausea with vomiting, unspecified; I44.0 Atrioventricular block, first degree; R91.8 Other nonspecific abnormal finding of lung field; I10 Essential (primary) hypertension; Z79.899 Other long term (current) drug therapy; Z90.49 Acquired absence of other specified parts of digestive tract; Z85.820 Personal history of malignant melanoma of skin; Z92.21 Personal history of antineoplastic chemotherapy
CPT/HCPCS: 36415; 74176; 80053; 83690; 84484; 85025; 93005; J1885; J2405; J7030

== ENCOUNTER → 2019-08-02 | Outpatient (CLI) | payer MEDICARE | LOC: GMAE 14:27 | PROVIDERS: ATTEND Family Medicine | DX: E53.8 Deficiency of other specified B group vitamins (principal); E83.52 Hypercalcemia; R53.83 Other fatigue; D50.9 Iron deficiency anemia, unspecified ==